=== PATIENT | male | born 1945 | race Caucasian/White ===

== ENCOUNTER → 2017-06-05 | Outpatient (CLI) | payer MEDICARE, BC | END | disposition home or self-care (01) | LOC: LABWHC1 10:29 | PROVIDERS: ATTEND Internal Medicine | DX: E23.0 Hypopituitarism (principal) | CPT/HCPCS: 36415; 82626 ==

== ENCOUNTER 2019-08-03 17:54 | Inpatient (IN) | payer BC, MEDICARE ==
[2019-08-03] MEDS ORDERED: ASPIRIN 81 MG PO STA (18:32)
[2019-08-03] MEDS ORDERED: SODIUM CHLORIDE 0.9% 500 ML 500 ML IV STA (18:32)
--- NOTE | 2019-08-03 18:36 | ED ---
General Adult HPI - General Chief complaint: Neuro Symptoms/Deficit Stated complaint: Headache, slurred speach Time Seen by Provider: 08/03/19 18:10 Source: patient, family Mode of arrival: ambulatory Limitations: no limitations - History of Present Illness Initial comments: Dictation was produced using [employer] dictation software. please excuse any grammatical, word or spelling errors. Chief Complaint: 73-year-old male presents with episodes of dysarthria History of Present Illness: 73-year-old male since yesterday's been having multiple episodes of dysarthria. Patient states his first episode was yesterday. States it lasted for several seconds. Patient states he feels like he had a hard time speaking transiently. He had another episode approximately 1 hour prior to arrival. He states that episode lasted for several seconds and resolved. Patient states he has no history of strokes. He is most stroke risk factors including diabetes, dyslipidemia hypertension. Patient states that over this last several weeks he's been dealing with headaches. He's been evaluated by multiple neurologists in the past. They feel like his headaches were secondary to cervical radiculopathy versus tension headache. He has an appointment with a headache specialist Dr. Michael for however has not made that appointment yet. Patient is asymptomatic at this time. The ROS documented in this emergency department record has been reviewed and confirmed by me. Those systems with pertinent positive or negative responses have been documented in the HPI. All other systems are other negative and/or noncontributory. PHYSICAL EXAM: General Impression: Alert and oriented x3, not in acute distress HEENT: Normocephalic atraumatic, extra-ocular movements intact, pupils equal and reactive to light bilaterally, mucous membranes moist. Cardiovascular: Heart regular rate and rhythm, S1&S2 audible, no murmurs, rubs or gallops Chest: Lungs clear to auscultation bilaterally, no rhonchi, no wheeze, no rales Abdomen: Bowel sounds present, abdomen soft, non-tender, non-distended, no organomegaly Musculoskeletal: Pulses present and equal in all extremities, no peripheral edema Motor: no focal deficits noted Neurological: CN II-XII grossly intact, no focal motor or sensory deficits noted Skin: Intact with no visualized rashes Psych: Normal affect and mood ED course: 73-year-old male presents with clinical presentation concerning for transient ischemic attack. Once upon arrival are within acceptable limits. Patient's NIH is currently 0. Laboratory evaluation obtained. CT, coag panel, metabolic panel is unremarkable. Chest x-ray is nonacute. Computed tomography scan of the head and neck shows no acute processes. There is demonstration of degenerative subluxation of C6-C7 and C7-T1. She given aspirin. There is clinical concern for transient ischemic attack. Patient will be admitted to Dr. Bradley with neurology on consultation. EKG interpretation: Ventricular rate 91, sinus rhythm,. 184, Q's 84, QTC 418. Overall this EKG is unremarkable. - Related Data Home Medications Medication Instructions Recorded Confirmed Albuterol Sulfate [Proventil Hfa] 1 puff INHALATION RT-Q6H PRN 08/03/19 08/03/19 Aspirin EC [Ecotrin Low Dose] 81 mg PO DAILY 08/03/19 08/03/19 Betamethasone Dipropionate 1 applic TOPICAL BID PRN 08/03/19 08/03/19 [Diprolene AF 0.05% Cream] Budesonide/Formoterol Fumarate 2 puff INHALATION RT-BID 08/03/19 08/03/19 [Symbicort 160-4.5 Mcg Inhaler] EPINEPHrine (Auto Inject) [Epipen] 0.3 mg IM ONCE PRN 08/03/19 08/03/19 Fluocinolone Acetonide [Synalar] 1 applic TOPICAL DAILY PRN 08/03/19 08/03/19 Gabapentin [Neurontin] 100 mg PO TID PRN 08/03/19 08/03/19 Ipratropium-Albuterol Nebulize 3 ml INHALATION RT-QID PRN 08/03/19 08/03/19 [Duoneb 0.5 mg-3 mg/3 ml Soln] Olmesartan Medoxomil [Benicar] 40 mg PO DAILY 08/03/19 08/03/19 Rosuvastatin [Crestor] 10 mg PO DAILY 08/03/19 08/03/19 Sildenafil Citrate [Viagra] 25 mg PO ONCE PRN 08/03/19 08/03/19 Ubidecarenone [Co Q-10] 400 mg PO DAILY 08/03/19 08/03/19 metFORMIN HCL [Glucophage] 500 mg PO AC-SUPPER 08/03/19 08/03/19 Allergies Allergy/AdvReac Type Severity Reaction Status Date / Time testosterone AdvReac MIGRAINES Verified 08/03/19 18:56 [From Testred Cypionate 200] Review of Systems ROS Statement: Those systems with pertinent positive or pertinent negative responses have been documented in the HPI. ROS Other: All systems not noted in ROS Statement are negative. Past Medical History Past Medical History: COPD, Diabetes Mellitus, Hyperlipidemia, Hypertension Additional Past Medical History / Comment(s): headache History of Any Multi-Drug Resistant Organisms: None Reported Past Surgical History: Back Surgery, Orthopedic Surgery Additional Past Surgical History / Comment(s): lymph node, rectal fistula, sinus surgery, L knee, Rshoulder, R nee, B carpal tunnel, Hemmorhoidectomy Past Psychological History: No Psychological Hx Reported Smoking Status: Former smoker Past Alcohol Use History: Occasional Past Drug Use History: None Reported General Exam Limitations: no limitations Course Vital Signs 08/03/19 08/03/19 18:02 18:50 Temperature 97.9 F Pulse Rate 83 99 Respiratory 18 16 Rate Blood Pressure 168/94 143/95 O2 Sat by Pulse 96 96 Oximetry Medical Decision Making - Lab Data Result diagrams: 08/03/19 18:42 08/03/19 18:42 Lab Results 08/03/19 08/03/19 08/03/19 Range/Units 18:42 18:42 18:42 WBC 6.4 (3.8-10.6) k/uL RBC 4.77 (4.30-5.90) m/uL Hgb 13.9 (13.0-17.5) gm/dL Hct 41.4 (39.0-53.0) % MCV 86.9 (80.0-100.0) fL MCH 29.2 (25.0-35.0) pg MCHC 33.6 (31.0-37.0) g/dL RDW 12.2 (11.5-15.5) % Plt Count 205 (150-450) k/uL Neutrophils % 65 % Lymphocytes % 20 % Monocytes % 7 % Eosinophils % 4 % Basophils % 1 % Neutrophils # 4.2 (1.3-7.7) k/uL Lymphocytes # 1.3 (1.0-4.8) k/uL Monocytes # 0.5 (0-1.0) k/uL Eosinophils # 0.3 (0-0.7) k/uL Basophils # 0.1 (0-0.2) k/uL PT 10.1 (9.0-12.0) sec INR 0.9 (<1.2) APTT 27.6 (22.0-30.0) sec Sodium 137 (137-145) mmol/L Potassium 4.4 (3.5-5.1) mmol/L Chloride 103 (98-107) mmol/L Carbon Dioxide 23 (22-30) mmol/L Anion Gap 11 mmol/L BUN 23 H (9-20) mg/dL Creatinine 1.13 (0.66-1.25) mg/dL Est GFR (CKD-EPI)AfAm 74 (>60 ml/min/1.73 sqM) Est GFR (CKD-EPI)NonAf 64 (>60 ml/min/1.73 sqM) Glucose 157 H (74-99) mg/dL Calcium 9.8 (8.4-10.2) mg/dL Total Bilirubin 0.3 (0.2-1.3) mg/dL AST 30 (17-59) U/L ALT 32 (21-72) U/L Alkaline Phosphatase 75 (38-126) U/L Troponin I (0.000-0.034) ng/mL Total Protein 7.3 (6.3-8.2) g/dL Albumin 4.6 (3.5-5.0) g/dL 08/03/19 Range/Units 18:42 WBC (3.8-10.6) k/uL RBC (4.30-5.90) m/uL Hgb (13.0-17.5) gm/dL Hct (39.0-53.0) % MCV (80.0-100.0) fL MCH (25.0-35.0) pg MCHC (31.0-37.0) g/dL RDW (11.5-15.5) % Plt Count (150-450) k/uL Neutrophils % % Lymphocytes % % Monocytes % % Eosinophils % % Basophils % % Neutrophils # (1.3-7.7) k/uL Lymphocytes # (1.0-4.8) k/uL Monocytes # (0-1.0) k/uL Eosinophils # (0-0.7) k/uL Basophils # (0-0.2) k/uL PT (9.0-12.0) sec INR (<1.2) APTT (22.0-30.0) sec Sodium (137-145) mmol/L Potassium (3.5-5.1) mmol/L Chloride (98-107) mmol/L Carbon Dioxide (22-30) mmol/L Anion Gap mmol/L BUN (9-20) mg/dL Creatinine (0.66-1.25) mg/dL Est GFR (CKD-EPI)AfAm (>60 ml/min/1.73 sqM) Est GFR (CKD-EPI)NonAf (>60 ml/min/1.73 sqM) Glucose (74-99) mg/dL Calcium (8.4-10.2) mg/dL Total Bilirubin (0.2-1.3) mg/dL AST (17-59) U/L ALT (21-72) U/L Alkaline Phosphatase (38-126) U/L Troponin I <0.012 (0.000-0.034) ng/mL Total Protein (6.3-8.2) g/dL Albumin (3.5-5.0) g/dL Disposition Clinical Impression: TIA (transient ischemic attack) Disposition: ADMITTED IP TO THIS HOSP Condition: Fair Referrals: Roseline Bradley MD [Primary Care Provider] - 1-2 days Decision Time: 19:39
[2019-08-03 18:55] LABS: Basophils # (A) 0.1 k/uL (0-0.2); Basophils % (A) 1 %; Eosinophils # (A) 0.3 k/uL (0-0.7); Eosinophils % (A) 4 %; HCT 41.4 % (39.0-53.0); HGB 13.9 gm/dL (13.0-17.5); Lymphocytes # (A) 1.3 k/uL (1.0-4.8); Lymphocytes % (A) 20 %; MCH 29.2 pg (25.0-35.0); MCHC 33.6 g/dL (31.0-37.0); MCV 86.9 fL (80.0-100.0); Mean Platelet Volume 7.1; Monocytes # (A) 0.5 k/uL (0-1.0); Monocytes % (A) 7 %; Neutrophils # (A) 4.2 k/uL (1.3-7.7); Neutrophils % (A) 65 %; Platelet Count 205 k/uL (150-450); RBC 4.77 m/uL (4.30-5.90); RDW 12.2 % (11.5-15.5); WBC 6.4 k/uL (3.8-10.6)
[2019-08-03 19:05] LABS: Albumin 4.6 g/dL (3.5-5.0); Calcium 9.8 mg/dL (8.4-10.2); Potassium 4.4 mmol/L (3.5-5.1); Total Bilirubin 0.3 mg/dL (0.2-1.3); Total Protein 7.3 g/dL (6.3-8.2)
[2019-08-03 19:13] LABS: INR 0.9 (<1.2); Partial Thromboplastin Time 27.6 sec (22.0-30.0); Prothrombin Time 10.1 sec (9.0-12.0)
--- NOTE | 2019-08-03 19:20 | XR ---
EXAMINATION TYPE: XR chest 2V DATE OF EXAM: 08/03/2019 COMPARISON: 08/07/2010 HISTORY: Headache chest pain TECHNIQUE: Frontal and lateral views of the chest are obtained. FINDINGS: Heart and mediastinum are normal. Lungs are clear. Diaphragm is normal. There are chest le ads. Bony thorax is intact. IMPRESSION: Normal chest. No change.
--- NOTE | 2019-08-03 19:29 | CT ---
EXAMINATION TYPE: CT brain neelima mckeon DATE OF EXAM: 08/03/2019 COMPARISON: Head CT scan December 11, 2009 HISTORY: Headache Neck pain CT DLP: 1512.8 mGycm Automated exposure control for dose reduction was used. TECHNIQUE: CT scan of the head and cervical spine are performed without contrast. FINDINGS: Ventricles have normal size. There is no mass effect nor midline shift. There is no sign of intracranial hemorrhage. The calvarium is intact. I see no bony destructive process. Skull base is intact. Cervical vertebra have fairly normal alignment. There is minimal degenerative 4 mm subluxation at C6- 7 and C7-T1. The facet joints are intact. There is multilevel hypertrophic facet arthropathy. The sku ll base is intact. There is no evidence of cervical spine fracture. IMPRESSION: No cervical spine fracture. Mild degenerative subluxation at C6-7 and C7-T1. Negative CT scan of the brain. No adverse change compared to old exam.
[2019-08-03 21:26] LABS: Glucose,Whole Blood 137 mg/dL (75-99)
[2019-08-03] MEDS ORDERED: IPRATROPIUM-ALBUTEROL 3 ML NEB INHALATION PRN (21:40)
[2019-08-03] MEDS ORDERED: ALBUTEROL NEBULIZED 2.5 MG/3 ML INHALATION PRN (21:40)
[2019-08-03] MEDS ORDERED: FLUOCINOLONE ACETONIDE TOPICAL PRN (21:40)
[2019-08-03] MEDS ORDERED: BETAMETHASONE DIPROPIONATE 0.05% CREAM 15 GM TUBE TOPICAL PRN (21:40)
[2019-08-03] MEDS ORDERED: GABAPENTIN 100 MG CAP PO PRN (21:40)
[2019-08-03] MEDS ORDERED: NON FORMULARY DRUG (Epinephrine (Auto Inject) 0.3 MG) IM PRN (21:40)
[2019-08-03] MEDS ORDERED: MELATONIN 3 MG TABLET PO PRN (21:44)
[2019-08-03] MEDS ORDERED: ACETAMINOPHEN TAB 325 MG TAB PO PRN (21:45)
[2019-08-03] MEDS: metFORMIN 500 MG TAB PO SCH (21:59)
[2019-08-04 04:16] LABS: Cholesterol 161 mg/dL (<200); HDL Cholesterol 47 mg/dL (40-60); LDL Cholesterol,Calculated 78 mg/dL (0-99); Triglycerides 179 mg/dL (<150)
[2019-08-04 06:20] LABS: Glucose,Whole Blood 112 mg/dL (75-99)
[2019-08-04] MEDS: INSULIN ASPART (NovoLOG) 100 UNIT/ML VIAL SQ SCH ×4 (06:22→20:30)
[2019-08-04] MEDS: SYMBICORT 160-4.5 MCG INHALER INHALATION SCH ×2 (07:27→19:29)
[2019-08-04] MEDS: ATORVASTATIN 20 MG TAB PO SCH (08:48)
[2019-08-04] MEDS: LOSARTAN 50 MG TAB PO SCH (08:48)
[2019-08-04] MEDS ORDERED: ASPIRIN 81 MG PO SCH (09:00)
[2019-08-04] MEDS ORDERED: NON FORMULARY DRUG (Ubidecarenone [Co Q-10] 400 MG) PO SCH (09:00)
[2019-08-04 11:49] LABS: Glucose,Whole Blood 103 mg/dL (75-99)
[2019-08-04] MEDS: CLOPIDOGREL 75 MG TAB PO SCH (11:49)
--- NOTE | 2019-08-04 12:04 | P.CNNES ---
History of Present Illness Consult date: 08/04/19 Reason for Consult: Recurrent TIA History of Present Illness: Patient is a 73-year-old male with history of hypertension, borderline diabetes, X tobacco use, hyperlipidemia, who states that in first week of May, he started having headaches pointing to the left occipital region, extending to the left temporal region. He was seen by his primary physician who felt it was coming from the neck because of arthritis. He was given gabapentin, and the headaches resolved in 2 weeks. The same headache came back in early June 2019, and was referred to Dr. Davis neurologist. He was also sent to a neurosurgeon for a possible nerve block. The neurosurgeon wanted patient to see the neurologist first and he has an appointment with Dr. Davis on 08/23/2019. The headache again lasted for a couple weeks and then resolved. Patient states the headaches reappeared Thursday night on 07/30/2019 and has been present since then. Patient states that on 08/02/2019, he had an episode of slurred speech by Dr. butelr to the table filler that lasted for 10 seconds and then resolved. Her morning he he was remodeling his house, and the slurred speech again occurred lasted for 3 seconds. He got concerned and came to the ER. Patient underwent computed tomography scan of the brain, which revealed no acute process. CT of the cervical spine showed mild degenerative subluxation of see 67 and C7-T1. Chest x-ray was normal, EKG showed normal sinus rhythm with marked sinus arrhythmia. Patient had 3-4 more episodes of transient slurred speech that lasted for 10-15 seconds each time since he has been to the hospital. In fact it happened while I was talking to him taking history and it happened for about 15-20 seconds and then went away. He has no other focal symptoms, facial droop, double vision, drooling, numbness tingling of the extremities or weakness. Patient states he had undergone stress test and a carotid Doppler checked on 02/18/2019 at [facility]. He was told the carotids have no significant blockage. Patient has history of hypertension for years. He has borderline diabetes for the last few months. He was just started on metformin in June 2019 after he is A1c was 6.8. Patient has smoked for 10 years, quit in 1981. For the first 7 years of smoking, he smoked 1-1/2 to 2 packs per day and for the last 3 years of smoking he smoked 3 packs per day. He quit tobacco use in 1981. Denies any alcohol. Patient does take aspirin 81 mg daily for a long time. Patient denies any history of headaches prior to May 2019 as above. Review of Systems As above in detail. Otherwise all 14 point review systems negative. 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 Past Medical History Past Medical History: COPD, Diabetes Mellitus, Hyperlipidemia, Hypertension Additional Past Medical History / Comment(s): headache History of Any Multi-Drug Resistant Organisms: None Reported Past Surgical History: Back Surgery, Orthopedic Surgery Additional Past Surgical History / Comment(s): lymph node, rectal fistula, sinus surgery, L knee, Rshoulder, R knee, B carpal tunnel, Hemmorhoidectomy Past Psychological History: No Psychological Hx Reported Smoking Status: Former smoker Past Alcohol Use History: Occasional Past Drug Use History: None Reported Medications and Allergies Home Medications Medication Instructions Recorded Confirmed Type Albuterol Sulfate [Proventil Hfa] 1 puff INHALATION RT-Q6H PRN 08/03/19 08/03/19 History Aspirin EC [Ecotrin Low Dose] 81 mg PO DAILY 08/03/19 08/03/19 History Betamethasone Dipropionate 1 applic TOPICAL BID PRN 08/03/19 08/03/19 History [Diprolene AF 0.05% Cream] Budesonide/Formoterol Fumarate 2 puff INHALATION RT-BID 08/03/19 08/03/19 History [Symbicort 160-4.5 Mcg Inhaler] EPINEPHrine (Auto Inject) [Epipen] 0.3 mg IM ONCE PRN 08/03/19 08/03/19 History Fluocinolone Acetonide [Synalar] 1 applic TOPICAL DAILY PRN 08/03/19 08/03/19 History Gabapentin [Neurontin] 100 mg PO TID PRN 08/03/19 08/03/19 History Ipratropium-Albuterol Nebulize 3 ml INHALATION RT-QID PRN 08/03/19 08/03/19 History [Duoneb 0.5 mg-3 mg/3 ml Soln] Olmesartan Medoxomil [Benicar] 40 mg PO DAILY 08/03/19 08/03/19 History Rosuvastatin [Crestor] 10 mg PO DAILY 08/03/19 08/03/19 History Sildenafil Citrate [Viagra] 25 mg PO ONCE PRN 08/03/19 08/03/19 History Ubidecarenone [Co Q-10] 400 mg PO DAILY 08/03/19 08/03/19 History metFORMIN HCL [Glucophage] 500 mg PO AC-SUPPER 08/03/19 08/03/19 History Allergies Allergy/AdvReac Type Severity Reaction Status Date / Time testosterone AdvReac MIGRAINES Verified 08/03/19 18:56 [From Testred Cypionate 200] Physical Examination - Vital Signs Vital Signs: Vital Signs Temp Pulse Pulse Resp BP BP Pulse Ox 08/04/19 11:16 75 16 175/95 97 08/04/19 07:54 97.4 F L 81 16 143/80 08/04/19 04:00 97.0 F L 85 18 126/71 98 08/04/19 00:00 97.4 F L 78 18 172/81 96 08/03/19 20:29 98.6 F 08/03/19 20:19 98.0 F 78 18 177/84 94 L 08/03/19 20:07 90 18 135/72 95 08/03/19 18:50 99 16 143/95 96 08/03/19 18:02 97.9 F 83 18 168/94 96 Intake and Output 08/03/19 08/04/19 08/04/19 22:59 06:59 14:59 Intake Total 240 240 Balance 240 240 Intake: Oral 240 240 Other: Voiding Method Toilet Toilet # Voids 2 Weight 96.4 kg On examination patient is an elderly male, very pleasant in no acute distress. Patient is alert awake oriented to time place and person. Speech- language functions recent and remote memory normal. Attention and concentration fund of knowledge is adequate. On cranial nerve examination pupils are small, about 2-3 mm, and then may minimally reacting. Extraocular muscles intact. Face is symmetric and tongue protrudes the midline. Palatal elevation and sensation normal. On muscle strength testing there is no drift and the strength is normal in arms and legs distally and proximally reflexes are 1+ and plantars downgoing sensory touch is equal. No ataxia for [id number] testing. Tone and bulk of muscles normal. Gait normal. No obvious bruit or murmur and peripheral pulses are present. Patient had an episode of transient slurred speech while he was providing history for me. The episode lasted for about 15-20 seconds and then resolved. There was no other associated focal neurological symptoms with it. Results Patient's cholesterol is 161, LDL 78, HDL 47 on 08/03/2019. - Laboratory Findings CBC and BMP: 08/03/19 18:42 08/03/19 18:42 Abnormal Lab Findings: Abnormal Labs 08/03/19 08/03/19 08/03/19 18:42 18:42 21:23 BUN 23 H Glucose 157 H POC Glucose (mg/dL) 137 H Triglycerides 179 H 08/04/19 06:19 BUN Glucose POC Glucose (mg/dL) 112 H Triglycerides Assessment and Plan Assessment: * Recurrent episodes of slurred speech lasting for 10-15 seconds, without any other focal neurological symptoms. Symptoms are suggestive of possible TIA, due to ischemia in some lacunar vascular distribution of small blood vessels in the brain. * New onset headaches, unclear etiology. Rule out large vessel stenosis/occlusion. * Hypertension * Borderline diabetes * Hyperlipidemia * X tobacco use. Plan: * Patient is experiencing recurrent brief episodes of slurred speech, possible TIA. His current neurological examination is normal. * Patient will be started on Plavix 75 mg daily for stroke prevention. * We will check CTA of head and neck to rule out large vessel stenosis/dissection. * Continue Crestor for dyslipidemia. * Await hemoglobin A1c. We will check ESR, CRP. * We will also check acetylcholine receptor antibodies to rule out possibility of myasthenia gravis, although appears less likely with lack of any ocular symptoms. * We will follow. * Thank you very much for allowing me to participate in care of your patient.
--- NOTE | 2019-08-04 13:50 | P.HPIM ---
History of Present Illness H&P Date: 08/04/19 Chief Complaint: Slurred speech. This is a 73-year-old male one of my patient with a previous medical history significant for hypertension and hypertensive cardiovascular disease with left ventricular hypertrophy, hyperlipidemia, diabetes mellitus type 2, osteoarthritis, COPD, remote history of tobacco use and dependence, hypogonadism was on androgen replacement therapy that he stopped, patient started to have significant neck pain started at the beginning of May and he has been seeing me on and off for that matter underwent an array of testing including carotid artery ultrasound echo care gram the stress testing that was negative for stress-induced ischemia also underwent MRI of the cervical spine that showed spondylosis of the lumbar spine was supposed to be seen by neurology for evaluation of possible occipital neuralgia and the patient had stopped his androgen replacement therapy due to increased risk of hyperlipidemia and risk of stroke patient came to the emergency department yesterday because of recurrent slurred speech that happened suddenly he stated that he was talking to his and he had a first episode on Thursday lasted for several seconds incontinence own and every time it happens he'll have an increase in his blood pressure r eading at home yesterday he had another episode in the afternoon he tried to call my office, see me however he decided to go to the ER for evaluation ended up going for computed tomography scan of the brain that was negative for acute infarct or bleed however because of the presentation was kept in the hospital with neurology evaluation patient was seen and evaluated by Dr. Guerra who recommended for the patient to go for CT angiography of the neck and the cerebral arteries for further evaluation and recommendation he was placed on antiplatelet therapy. Review of Systems Constitutional: Reports chronic headaches, Denies anorexia, Denies lethargy, Denies malaise, Denies weakness, Denies weight gain, Denies weight loss Eyes: denies blurred vision, denies bulging eye, denies decreased vision Ears: deny: decreased hearing Ears, nose, mouth and throat: Denies dysphagia, Denies neck lump, Denies sore throat, Denies vertigo Cardiovascular: Denies chest pain, Denies decreased exercise tolerance, Denies dyspnea on exertion, Denies lightheadedness, Denies rapid heart beat, Denies shortness of breath, Denies syncope Respiratory: Denies congestion, Denies cough, Denies cough with sputum, Denies home oxygen, Denies sleep apnea, Denies snoring, Denies wheezing Gastrointestinal: Denies abdominal pain, Denies bloating, Denies BRBPR, Denies heartburn, Denies loss of appetite, Denies melena, Denies nausea, Denies vomiting Genitourinary: Reports decreased libido, Denies dysuria, Denies kidney stones, Denies nocturia, Denies polyuria Musculoskeletal: Denies myalgias Musculoskeletal: absent: ankle pain, ankle stiffness, ankle swelling, elbow pain, elbow stiffness, elbow swelling, foot pain, foot stiffness, foot swelling, hand pain, hand stiffness, hand swelling, hip pain, hip stiffness, hip swelling, knee pain, knee stiffness, knee swelling, shoulder pain, shoulder stiffness, shoulder swelling, wrist pain, wrist stiffness, wrist swelling Integumentary: Denies pruritus, Denies rash Neurological: Denies gait dysfunction, Denies head injury, Denies lack of coordination, Denies loss of vision, Denies memory loss, Denies migraines, Denies motor disturbance, Denies numbness, Denies paralysis, Denies paresthesias, Denies weakness Psychiatric: Denies anxiety, Denies depression Endocrine: Denies fatigue, Denies weight change Past Medical History Past Medical History: COPD, Diabetes Mellitus, Hyperlipidemia, Hypertension, Prostate Disorder Additional Past Medical History / Comment(s): headache History of Any Multi-Drug Resistant Organisms: None Reported Past Surgical History: Back Surgery, Orthopedic Surgery Additional Past Surgical History / Comment(s): lymph node, rectal fistula, sinus surgery, L knee, Rshoulder, R knee, B carpal tunnel, Hemmorhoidectomy Past Psychological History: No Psychological Hx Reported Smoking Status: Former smoker (Patient used to smoke about 3 pack every day for about 50 years he quit in 1981.) Past Alcohol Use History: Occasional Past Drug Use History: None Reported - Past Family History Mother Family Medical History: No Reported History (Mother at age of 50 from unknown cause) Father Family Medical History: No Reported History (Father at age of 85 from unknown cause.) Brother(s) Family Medical History: No Reported History (Patient has one brother no major medical problems.) Sister(s) Family Medical History: Diabetes Mellitus, Thyroid Disorder (Patient had one sister who from more of a vehicle accident and had history of diabetes hypothyroidism and obesity.) Daughter(s) Family Medical History: Diabetes Mellitus, Hypertension (Patient has one daughter with diabetes hypertension and also arthritis per) Son(s) Family Medical History: No Reported History (Patient has one son no major medical problems.) Medications and Allergies Home Medications Medication Instructions Recorded Confirmed Type Albuterol Sulfate [Proventil Hfa] 1 puff INHALATION RT-Q6H PRN 08/03/19 08/03/19 History Aspirin EC [Ecotrin Low Dose] 81 mg PO DAILY 08/03/19 08/03/19 History Betamethasone Dipropionate 1 applic TOPICAL BID PRN 08/03/19 08/03/19 History [Diprolene AF 0.05% Cream] Budesonide/Formoterol Fumarate 2 puff INHALATION RT-BID 08/03/19 08/03/19 History [Symbicort 160-4.5 Mcg Inhaler] EPINEPHrine (Auto Inject) [Epipen] 0.3 mg IM ONCE PRN 08/03/19 08/03/19 History Fluocinolone Acetonide [Synalar] 1 applic TOPICAL DAILY PRN 08/03/19 08/03/19 History Gabapentin [Neurontin] 100 mg PO TID PRN 08/03/19 08/03/19 History Ipratropium-Albuterol Nebulize 3 ml INHALATION RT-QID PRN 08/03/19 08/03/19 History [Duoneb 0.5 mg-3 mg/3 ml Soln] Olmesartan Medoxomil [Benicar] 40 mg PO DAILY 08/03/19 08/03/19 History Rosuvastatin [Crestor] 10 mg PO DAILY 08/03/19 08/03/19 History Sildenafil Citrate [Viagra] 25 mg PO ONCE PRN 08/03/19 08/03/19 History Ubidecarenone [Co Q-10] 400 mg PO DAILY 08/03/19 08/03/19 History metFORMIN HCL [Glucophage] 500 mg PO AC-SUPPER 08/03/19 08/03/19 History Allergies Allergy/AdvReac Type Severity Reaction Status Date / Time testosterone AdvReac MIGRAINES Verified 08/03/19 18:56 [From Testred Cypionate 200] Physical Exam Vitals: Vital Signs Temp Pulse Pulse Resp BP BP Pulse Ox 08/04/19 11:16 75 16 175/95 97 08/04/19 11:00 97.2 F L 75 17 157/88 96 08/04/19 07:54 97.4 F L 81 16 143/80 08/04/19 04:00 97.0 F L 85 18 126/71 98 08/04/19 00:00 97.4 F L 78 18 172/81 96 08/03/19 20:29 98.6 F 08/03/19 20:19 98.0 F 78 18 177/84 94 L 08/03/19 20:07 90 18 135/72 95 08/03/19 18:50 99 16 143/95 96 08/03/19 18:02 97.9 F 83 18 168/94 96 Intake and Output 08/03/19 08/04/19 08/04/19 22:59 06:59 14:59 Intake Total 240 472 Balance 240 472 Intake: IV 10 0.9 10 Oral 240 462 Other: Voiding Method Toilet Toilet # Voids 2 Weight 96.4 kg HEENT: Head is atraumatic, normocephalic, pupils were equal round reactive to light and accommodations, extraocular muscle movement were intact. Mucous membranes of the mouth was dry. Neck: Supple, no JVP, no carotid bruit, no lymphadenopathy. Chest: Decreased breath sounds at the bases, few rhonchi, no expiratory wheezes, no chest with tenderness, no intercostal retractions per he Heart: First heart sound is depressed, second heart sounds normal, there is systolic ejection murmur 2/6 located in the left sternal border. Abdomen: Soft, nontender, nondistended, positive bowel sounds, no he patosplenomegaly Extremities: No edema, no calf tenderness, dorsalis pedis +2 bilaterally. Neurologic examination: Patient is awake alert and oriented 3, cranial nerves II-12 appear grossly intact, muscle power 5 out of 5 in upper and lower extremities bilaterally deep tendon reflexes were normal, no clonus, no pronator drift. Results CBC & Chem 7: 08/03/19 18:42 08/03/19 18:42 Labs: Abnormal Lab Results - Last 24 Hours (Table) 08/03/19 08/03/19 08/03/19 Range/Units 18:42 18:42 21:23 BUN 23 H (9-20) mg/dL Glucose 157 H (74-99) mg/dL POC Glucose (mg/dL) 137 H (75-99) mg/dL Triglycerides 179 H (<150) mg/dL 08/04/19 08/04/19 Range/Units 06:19 11:46 BUN (9-20) mg/dL Glucose (74-99) mg/dL POC Glucose (mg/dL) 112 H 103 H (75-99) mg/dL Triglycerides (<150) mg/dL Thrombosis Risk Factor Assmnt - DVT/VTE Prophylaxis DVT/VTE Prophylaxis: Pharmacologic Prophylaxis ordered, Mechanical Prophylaxis ordered - Choose All That Apply Any of the Below Risk Factors Present?: No Other Risk Factors: Yes Each Risk Factor Represents 2 Points: Age 61-74 years Other congenital or acquired thrombophilia - If yes, enter type in comment: No Thrombosis Risk Factor Assessment Total Risk Factor Score: 2 Thrombosis Risk Factor Assessment Level: Low Risk Assessment and Plan Assessment: Assessment and plan: 1. Acute transient ischemic attack likely related to lacunar infarct in view of his hypertension diabetes and hyperlipidemia. Patient did have a computed tomography scan of the brain that was totally negative, neuro check every 2 hours for the next 24 hours, monitor the patient very closely, patient did have an echo cardiac gram an ultrasound of the carotid in February of this year that were negative, patient is going for CTA of the neck and the cerebral arteries, may need to go for MRI of the brain with and without gadolinium. Continue Plavix 75 mg orally once every day, continue Crestor 10 mg orally once every day for secondary stroke prevention. 2. Hypertension and hypertensive cardiovascular disease with left ventricular hypertrophy. Continue Olmesartan 40 mg orally once every day, may add small dose of hydrochlorothiazide 12.5 mg orally once every day. 3. Hyperlipidemia. Continue patient on low-cholesterol diet, continue with Crestor 20 mg orally once every day. 4. History of COPD. Continue patient on Symbicort 160/4.5 g 2 puffs inhalation twice every day. 5. Degenerative disc disease of the cervical spine with subluxation of C6 and 7. Had an MRI of the cervical spine not too long ago and appears to be stable. 6. History of hypogonadism. However the patient was taken off his testosterone due to side effects. 7. Impotence. Patient is using sildenafil as needed . 8. Occipital headache. Continue with gabapentin 100 mg orally 3 times every day. 9. DVT prophylaxis. Continue patient on heparin 5000 units subcutaneously every 12 hours. 10. GI prophylaxis. Continue Protonix 40 mg orally once every day. 11. Admitted to inpatient. Estimate a length of stay 2 midnights. 12. Patient is full code.
--- NOTE | 2019-08-04 14:29 | CT ---
EXAMINATION TYPE: CT angio head neck DATE OF EXAM: 08/04/2019 HISTORY: TIA COMPARISON: None CT DLP: 546.3 mGycm. Automated Exposure Control for Dose Reduction was Utilized. TECHNIQUE: CTA scan of the neck is performed with IV Contrast, patient injected with 65 mL of Isovue 370, axial images are obtained, coronal and sagittal reformatted images are reviewed. Three-D recons tructed images are created on an independent workstation and reviewed. Source images are reviewed. FINDINGS: Carotid/Vascular Structures: Internal carotid arteries are patent to the skull base. No suspicious st enosis of the carotid bifurcations is evident. 2-D reconstructive images and 3-D rotating images appe ar without significant stenosis. Some plaquing is present at the right internal carotid artery origin without stenosis or vertebral arteries are codominant. Cervical of [place]: Vertebral basilar system appears normal. Posterior cerebral vasculature is unrema rkable. Internal carotid arteries bifurcate normally into A1 and M1 segments. A2 segments are normal. The anterior communicating artery is patent. Left Posterior communicating artery is patent. Right po sterior communicating artery is patent. IMPRESSION: 1. No flow-limiting stenosis bilateral carotid bifurcations. Atheromatous plaquing is noted on the ri ght. 2. Normal [place]
[2019-08-04] MEDS: HEPARIN SODIUM,PORCINE 5,000 UNIT/ML 1 ML VIAL SQ SCH ×2 (16:03→23:24)
[2019-08-04 16:26] LABS: Glucose,Whole Blood 100 mg/dL (75-99)
[2019-08-04 16:29] LABS: Hemoglobin A1C 6.6 % (4.0-6.0)
[2019-08-04] MEDS: metFORMIN 500 MG TAB PO SCH (16:55)
[2019-08-04] MEDS ORDERED: HYDROcodone/APAP 5-325MG 1 EACH TAB PO STA (18:10)
[2019-08-04 20:28] LABS: Glucose,Whole Blood 94 mg/dL (75-99)
[2019-08-04 20:31] LABS: Glucose,Whole Blood 100 mg/dL (75-99)
[2019-08-04] MEDS ORDERED: HYDROcodone/APAP 5-325MG 1 EACH TAB PO ONE (21:00)
[2019-08-05 05:58] LABS: Glucose,Whole Blood 109 mg/dL (75-99)
[2019-08-05] MEDS: INSULIN ASPART (NovoLOG) 100 UNIT/ML VIAL SQ SCH ×4 (05:58→20:35)
[2019-08-05 06:20] LABS: Basophils % (A) 0 %; Eosinophils # (A) 0.3 k/uL (0-0.7); Eosinophils % (A) 7 %; HCT 41.5 % (39.0-53.0); HGB 14.3 gm/dL (13.0-17.5); Lymphocytes # (A) 1.2 k/uL (1.0-4.8); Lymphocytes % (A) 25 %; MCHC 34.5 g/dL (31.0-37.0); MCV 87.1 fL (80.0-100.0); Mean Platelet Volume 6.3; Monocytes # (A) 0.4 k/uL (0-1.0); Monocytes % (A) 8 %; Neutrophils # (A) 2.7 k/uL (1.3-7.7); Neutrophils % (A) 57 %; Platelet Count 208 k/uL (150-450); RBC 4.76 m/uL (4.30-5.90); RDW 12.3 % (11.5-15.5); WBC 4.7 k/uL (3.8-10.6)
[2019-08-05 06:33] LABS: Albumin 4.3 g/dL (3.5-5.0); Calcium 9.8 mg/dL (8.4-10.2); Potassium 4.5 mmol/L (3.5-5.1); Total Bilirubin 0.5 mg/dL (0.2-1.3)
[2019-08-05] MEDS: LOSARTAN 50 MG TAB PO SCH (07:55)
[2019-08-05] MEDS: CLOPIDOGREL 75 MG TAB PO SCH (07:55)
[2019-08-05] MEDS: HEPARIN SODIUM,PORCINE 5,000 UNIT/ML 1 ML VIAL SQ SCH ×3 (07:55→22:52)
[2019-08-05] MEDS: ATORVASTATIN 20 MG TAB PO SCH (07:55)
[2019-08-05] MEDS: SYMBICORT 160-4.5 MCG INHALER INHALATION SCH ×2 (11:25→20:12)
[2019-08-05 11:42] LABS: Glucose,Whole Blood 110 mg/dL (75-99)
[2019-08-05] MEDS: ASPIRIN 81 MG PO SCH (11:55)
[2019-08-05] MEDS: HYDROCHLOROTHIAZIDE 25 MG TAB PO SCH (11:55)
--- NOTE | 2019-08-05 12:42 | MR ---
EXAMINATION TYPE: MR brain wo/w con DATE OF EXAM: 08/05/2019 COMPARISON: CT brain 08/03/2019 HISTORY: TIA/Slurred Speech TECHNIQUE: Multiplanar, multisequence images of the brain and brainstem is performed without and with IV contras t, utilizing 9 mL intravenous Gadavist . FINDINGS: Diffusion weighted images demonstrate no evidence of a recent infarct or other diffusion ab normality. There are foci of increased signal on inversion recovery and T2-weighted sequences within the subcortical, juxtacortical, periventricular white matter, approximately 5-10 lesions. There is no extra-axial fluid collection. The ventricular system and cisternal spaces are normal in size and ap pearance. The brain volume is age appropriate. Midline structures demonstrate normal morphology. The craniocervical junction appears within normal limits. Post contrast images demonstrate no abnormal enhancement. The dural venous sinuses appear pa tent. The visualized sinuses are remarkable for mucosal disease within the maxillary sinuses, ethmoid air cells and frontal sinus, and the globes are intact. IMPRESSION: Nonspecific white matter demyelination, findings may be due to chronic small vessel ische mandeep disease. Mild sinus disease.
--- NOTE | 2019-08-05 13:58 | EEG ---
ELECTROENCEPHALOGRAM REPORT DATE OF SERVICE: 08/05/2019 PREAMBLE: This is a 73-year-old male who has been having episodes of slurred speech, lasting for 10 to 15 seconds and then going away. This study is performed to evaluate for any epileptiform activity. EEG FINDINGS: A routine 21 channel awake digital EEG recording was accomplished utilizing the 10/20 international system with bipolar and referential montages. The background consists of well developed, well regulated, moderate amplitude activity in 9 to 10 hertz alpha. Background is posterior dominant and reactive to eye opening and closing. There is intermittent left temporal sharp waves seen during the study. Mild drowsiness was seen but deeper stages of sleep were not seen. Photic driving response was not seen. EKG rhythm lead revealed no arrhythmia. IMPRESSION: This is an abnormal EEG due to intermittent left temporal sharp waves. This is suggestive of focal cortical neuronal dysfunction, with cortical irritability and tendency for seizures. Clinical correlation is strongly recommended. MMANA MARIA / REJI: [id number] / [email or web address]
[2019-08-05] MEDS: OXcarbazepine 150 MG TAB PO SCH ×2 (14:05→20:39)
--- NOTE | 2019-08-05 14:40 | P.PN ---
Subjective Progress Note Date: 08/05/19 Patient had 8 stereotypical spells yesterday, and 3 today. Each of these associated with slurred speech lasting for several seconds. No associated loss of consciousness or loss of awareness. No other focal neurological symptoms. Patient's ESR is 6, hemoglobin A1c 6.6. CRP is <0.50, cholesterol 161, LDL 78, HDL 47. EKG showed sinus rhythm with marked sinus arrhythmia. Patient had a CTA of head and neck, which revealed no flow limiting stenosis involving bilateral carotids. Atheromatous plaquing is noted on the right. Normal [place]. MRI of the brain with and without contrast, which was nonspecific white matter demyelination, findings may be due to chronic small vessel ischemic disease. Mild sinus disease. Patient had an EEG, which revealed abnormal EEG due to intermittent left temporal sharp waves. This is suggestive of focal cortical neuronal dysfunction, with cortical irritability and tendency for seizures. Clinical correlation is strongly recommended. Objective - Vital Signs Vital signs: Vital Signs Temp 97.5 F L 08/05/19 12:00 Pulse 76 08/05/19 12:00 Resp 16 08/05/19 12:00 BP 132/81 08/05/19 12:00 Pulse Ox 97 08/05/19 12:00 Intake & Output 08/04/19 08/05/19 08/05/19 18:59 06:59 18:59 Intake Total 694 30 510 Output Total 3 Balance 694 27 510 Weight 94.3 kg Intake: IV 10 30 30 0.9 10 10 Invasive Line 1 30 20 Oral 684 480 Output: Urine 3 Other: Voiding Method Toilet Toilet Toilet # Voids 450 - Exam Patient's mental status, speech and language functions are normal. Cranial nerves are normal. Muscle strength normal. No ataxia. Tone and bulk of muscles normal. - Labs CBC & Chem 7: 08/05/19 05:55 08/05/19 05:55 Labs: Abnormal Lab Results - Last 24 Hours (Table) 08/03/19 08/04/19 08/04/19 Range/Units 18:42 16:24 20:24 Sodium (137-145) mmol/L BUN (9-20) mg/dL Glucose (74-99) mg/dL POC Glucose (mg/dL) 100 H 100 H (75-99) mg/dL Hemoglobin A1c 6.6 H (4.0-6.0) % 08/05/19 08/05/19 08/05/19 Range/Units 05:55 05:56 11:39 Sodium 133 L (137-145) mmol/L BUN 22 H (9-20) mg/dL Glucose 109 H (74-99) mg/dL POC Glucose (mg/dL) 109 H 110 H (75-99) mg/dL Hemoglobin A1c (4.0-6.0) % Assessment and Plan Assessment: * Recurrent episodes of slurred speech lasting for 10-15 seconds, without any other focal neurological symptoms. TIA is unlikely, with lack of response from Plavix, and normal MRI of the brain. EEG was abnormal with evidence of intermittent left temporal sharp waves. Patient possibly having simple partial seizures. Patient denies any history of concussions, or traumatic brain injury in the past. MRI of the brain was normal. Exact cause is uncertain. * New onset headaches, unclear etiology. No evidence of large vessel stenosis/occlusion. No evidence of temporal arteritis. * Hypertension * Borderline diabetes * Hyperlipidemia * X tobacco use. Plan: * Patient is experiencing recurrent brief episodes of slurred speech. TIA workup is negative. EEG was abnormal suggestive of possible simple partial seizures. We will empirically start patient on Trileptal 150 mg twice a day. Hopefully Trileptal will also help with neuralgic pain involving the left occipital region. Patient will be started on Trileptal 150 mg twice a day. If needed, the dose could be increased to 300 mg twice a day. Patient was informed to stop medication if he gets any rash. He needs to follow-up with a neurologist locally to follow-up on the dose of Trileptal. Patient has an appointment with Dr. Davis on 07/23/2019. * Continue aspirin and Plavix for now. * Await acetylcholine receptor antibodies to rule out possibility of myasthenia gravis, although appears less likely with lack of any ocular symptoms. * If patient stays stable overnight, then may discharge in the morning. * Patient was recommended to hold off on driving, until cleared by his neurologist Dr. Davis.
--- NOTE | 2019-08-05 15:06 | P.PN ---
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, hyperlipidemia, diabetes mellitus type 2, osteoarthritis, COPD, remote history of tobacco use and dependence, hypogonadism was on androgen replacement therapy that he stopped, patient started to have significant neck pain started at the beginning of May and he has been seeing me on and off for that matter underwent an array of testing including carotid artery ultrasound echo care gram the stress testing that was negative for stress-induced ischemia also underwent MRI of the cervical spine that showed spondylosis of the lumbar spine was supposed to be seen by neurology for evaluation of possible occipital neuralgia and the patient had stopped his androgen replacement therapy due to increased risk of hyperlipidemia and risk of stroke patient came to the emergency department yesterday because of recurrent slurred speech that happened suddenly he stated that he was talking to his and he had a first episode on Thursday lasted for several seconds incontinence own and every time it happens he'll have an increase in his blood pressure reading at home yesterday he had another episode in the afternoon he tried to call my office, see me however he decided to go to the ER for evaluation ended up going for computed tomography scan of the brain that was negative for acute infarct or bleed however because of the presentation was kept in the hospital with neurology evaluation patient was seen and evaluated by Dr. Guerra who recommended for the patient to go for CT angiography of the neck and the cer ebral arteries for further evaluation and recommendation he was placed on antiplatelet therapy. 08/05: MRI of the brain showed nonspecific white matter demyelination, findings may be due to chronic small vessel ischemic disease. Mild sinus disease. EEG was abnormal due to intermittent left temporal sharp waves. This is suggestive of focal cortical neuronal dysfunction with cortical irritability and tendency for seizures. Dr. Guerra has started the patient on Trileptal 150 mg twice daily and may be increased to 300 mg twice daily. Patient was informed start medication if he developed a rash. Patient has a scheduled appointment with Dr. Davis on August 23. He recommends continuing aspirin and Plavix for now. Acetylcholine receptor antibiotics remain pending. If he remains stable overnight, he can be discharged home tomorrow. Patient had more episodes when putting ice on his neck. He did have one episode this morning but are less frequent today. Review of Systems Constitutional: Reports chronic headaches, Denies anorexia, Denies lethargy, Denies malaise, Denies weakness, Denies weight gain, Denies weight loss Eyes: denies blurred vision, denies bulging eye, denies decreased vision Ears, nose, mouth and throat: Denies dysphagia, Denies neck lump, Denies sore throat, Denies vertigo Cardiovascular: Denies chest pain, Denies decreased exercise tolerance, Denies dyspnea on exertion, Denies lightheadedness, Denies rapid heart beat, Denies shortness of breath, Denies syncope Respiratory: Denies congestion, Denies cough, Denies cough with sputum, Denies home oxygen, Denies sleep apnea, Denies snoring, Denies wheezing Gastrointestinal: Denies abdominal pain, Denies bloating, Denies BRBPR, Denies heartburn, Denies loss of appetite, Denies melena, Denies nausea, Denies vomiting Genitourinary: Reports decreased libido, Denies dysuria, Denies kidney stones, Denies nocturia, Denies polyuria Musculoskeletal: Denies myalgias Musculoskeletal: absent: ankle pain, ankle stiffness, ankle swelling, elbow pain, elbow stiffness, elbow swelling, foot pain, foot stiffness, foot swelling, hand pain, hand stiffness, hand swelling, hip pain, hip stiffness, hip swelling, knee pain, knee stiffness, knee swelling, shoulder pain, shoulder stiffness, shoulder swelling, wrist pain, wrist stiffness, wrist swelling Integumentary: Denies pruritus, Denies rash Neurological: Denies gait dysfunction, Denies head injury, Denies lack of coordination, Denies loss of vision, Denies memory loss, Denies migraines, Denies motor disturbance, Denies numbness, Denies paralysis, Denies paresthesias, Denies weakness Psychiatric: Denies anxiety, Denies depression Endocrine: Denies fatigue, Denies weight change Objective - Vital Signs Vital signs: Vital Signs Temp 97.5 F L 08/05/19 12:00 Pulse 76 08/05/19 12:00 Resp 16 08/05/19 12:00 BP 132/81 08/05/19 12:00 Pulse Ox 97 08/05/19 12:00 Intake & Output 08/04/19 08/05/19 08/05/19 18:59 06:59 18:59 Intake Total 694 30 510 Output Total 3 Balance 694 27 510 Weight 94.3 kg Intake: IV 10 30 30 0.9 10 10 Invasive Line 1 30 20 Oral 684 480 Output: Urine 3 Other: Voiding Method Toilet Toilet Toilet # Voids 450 - Exam Gen.: 73-year-old male. Patient is sitting in recliner and appears to be comfortable and in no acute distress. Daughter is at bedside. HEENT: Head is atraumatic, normocephalic, pupils were equal round reactive to light and accommodations, extraocular muscle movement were intact. Mucous membranes of the mouth was dry. Neck: Supple, no JVP, no carotid bruit, no lymphadenopathy. Chest: Decreased breath sounds at the bases, few rhonchi, no expiratory wheezes, no chest with tenderness, no intercostal retractions per he Heart: First heart sound is depressed, second heart sounds normal, there is systolic ejection murmur 2/6 located in the left sternal border. Abdomen: Soft, nontender, nondistended, positive bowel sounds, no hepatosplenomegaly Extremities: No edema, no calf tenderness, dorsalis pedis +2 bilaterally. Neurologic examination: Patient is awake alert and oriented 3, cranial nerves II-12 appear grossly intact, muscle power 5 out of 5 in upper and lower extremities bilaterally deep tendon reflexes were normal, no clonus, no pronator drift. - Labs CBC & Chem 7: 08/05/19 05:55 08/05/19 05:55 Labs: Abnormal Lab Results - Last 24 Hours (Table) 08/03/19 08/04/19 08/04/19 Range/Units 18:42 16:24 20:24 Sodium (137-145) mmol/L BUN (9-20) mg/dL Glucose (74-99) mg/dL POC Glucose (mg/dL) 100 H 100 H (75-99) mg/dL Hemoglobin A1c 6.6 H (4.0-6.0) % 08/05/19 08/05/19 08/05/19 Range/Units 05:55 05:56 11:39 Sodium 133 L (137-145) mmol/L BUN 22 H (9-20) mg/dL Glucose 109 H (74-99) mg/dL POC Glucose (mg/dL) 109 H 110 H (75-99) mg/dL Hemoglobin A1c (4.0-6.0) % Assessment and Plan Plan: 1. Acute transient ischemic attack ruled out. Episodes may be related to seizure activity. Neurology has started Trileptal 150 mg twice daily. Continue aspirin and Plavix 75 mg orally once every day, continue Crestor 10 mg orally once every day for secondary stroke prevention. Patient [facility] be [facility] floor. 2. Hypertension and hypertensive cardiovascular disease with left ventricular hypertrophy. Continue Olmesartan 40 mg orally once every day, may add small dose of hydrochlorothiazide 12.5 mg orally once every day. 3. Hyperlipidemia. Continue patient on low-cholesterol diet, continue with Crestor 20 mg orally once every day. 4. History of COPD. Continue patient on Symbicort 160/4.5 g 2 puffs inhalation twice every day. 5. Degenerative disc disease of the cervical spine with subluxation of C6 and 7. Had an MRI of the cervical spine not too long ago and appears to be stable. 6. History of hypogonadism. However the patient was taken off his testosterone due to side effects. 7. Impotence. Patient is using sildenafil as needed . 8. Occipital headache. Continue with gabapentin 100 mg orally 3 times every day. 9. DVT prophylaxis. Continue patient on heparin 5000 units subcutaneously every 12 hours. 10. GI prophylaxis. Continue Protonix 40 mg orally once every day. Patient is full code. Discharge plan: Home on Thursday Impression and plan of care have been directed as dictated by the signing physic ian. Shanthi Montano nurse practitioner acting as scribe for signing physician.
[2019-08-05 17:01] LABS: Glucose,Whole Blood 132 mg/dL (75-99)
[2019-08-05] MEDS: metFORMIN 500 MG TAB PO SCH (17:14)
[2019-08-05 20:38] LABS: Glucose,Whole Blood 104 mg/dL (75-99)
[2019-08-05 21:03] VITALS: RESP 18
[2019-08-06 06:01] LABS: Glucose,Whole Blood 119 mg/dL (75-99)
[2019-08-06] MEDS: INSULIN ASPART (NovoLOG) 100 UNIT/ML VIAL SQ SCH (06:02)
[2019-08-06] MEDS: ATORVASTATIN 20 MG TAB PO SCH (08:18)
[2019-08-06] MEDS: LOSARTAN 50 MG TAB PO SCH (08:18)
[2019-08-06] MEDS: HYDROCHLOROTHIAZIDE 25 MG TAB PO SCH (08:18)
[2019-08-06] MEDS: CLOPIDOGREL 75 MG TAB PO SCH (08:18)
[2019-08-06] MEDS: ASPIRIN 81 MG PO SCH (08:18)
[2019-08-06] MEDS: HEPARIN SODIUM,PORCINE 5,000 UNIT/ML 1 ML VIAL SQ SCH (08:19)
[2019-08-06] MEDS: SYMBICORT 160-4.5 MCG INHALER INHALATION SCH (08:19)
[2019-08-06] MEDS: OXcarbazepine 150 MG TAB PO SCH (08:24)
--- NOTE | 2019-08-06 10:13 | P.DS ---
Providers Date of admission: 08/05/19 13:54 Attending physician: Roseline Bradley Consults: 08/03/19 18:32 Consult Physician Routine Consulting Provider: Ratna Ames Consult Reason/Comments: tia Do you want consulting provider notified?: Yes Primary care physician: Roseline Bradley Hospital Course: This is 73 years old male who presented to the hospital with slurred speech and intractable headache evaluated by neurology with appropriate testing patient returned to be negative for stroke or risk factors for stroke EEG was done which showed abnormal waves suggesting small partial seizure patient was started on Trileptal twice daily and his symptoms improved and resolved during the hospital stay. Patient advised to follow-up with his primary care physician in 2-3 days regarding the possible chronic sinusitis and was prescribed Claritin daily at the time of the discharge on the top of his newly started medication including Trileptal and Plavix. Long discussion with patient and regarding medicatio n adherence and close follow-up outpatient with his primary care physician and patient felt stable from the medical standpoint for discharge Patient Condition at Discharge: Good Plan - Discharge Summary Discharge Rx Participant: No New Discharge Prescriptions: New Hydrochlorothiazide [Hydrodiuril] 25 mg PO DAILY #30 tab Clopidogrel [Plavix] 75 mg PO DAILY #30 tab OXcarbazepine [Trileptal] 150 mg PO BID #60 tab Continue Gabapentin [Neurontin] 100 mg PO TID PRN PRN Reason: Pain metFORMIN HCL [Glucophage] 500 mg PO AC-SUPPER Sildenafil Citrate [Viagra] 25 mg PO ONCE PRN PRN Reason: E.D. Budesonide/Formoterol Fumarate [Symbicort 160-4.5 Mcg Inhaler] 2 puff INHALATION RT-BID Rosuvastatin [Crestor] 10 mg PO DAILY Ipratropium-Albuterol Nebulize [Duoneb 0.5 mg-3 mg/3 ml Soln] 3 ml INHALATION RT-QID PRN PRN Reason: Shortness Of Breath Albuterol Sulfate [Proventil Hfa] 1 puff INHALATION RT-Q6H PRN PRN Reason: Shortness Of Breath Fluocinolone Acetonide [Synalar] 1 applic TOPICAL DAILY PRN PRN Reason: RECTAL AREA EPINEPHrine (Auto Inject) [Epipen] 0.3 mg IM ONCE PRN PRN Reason: Anaphylaxis Ubidecarenone [Co Q-10] 400 mg PO DAILY Olmesartan Medoxomil [Benicar] 40 mg PO DAILY Betamethasone Dipropionate [Diprolene AF 0.05% Cream] 1 applic TOPICAL BID PRN PRN Reason: Rash Aspirin EC [Ecotrin Low Dose] 81 mg PO DAILY Discharge Medication List Albuterol Sulfate [Proventil Hfa] 1 puff INHALATION RT-Q6H PRN 08/03/19 [History] Aspirin EC [Ecotrin Low Dose] 81 mg PO DAILY 08/03/19 [History] Betamethasone Dipropionate [Diprolene AF 0.05% Cream] 1 applic TOPICAL BID PRN 1 [History] Budesonide/Formoterol Fumarate [Symbicort 160-4.5 Mcg Inhaler] 2 puff INHALATION RT-BID 08/03/19 [History] EPINEPHrine (Auto Inject) [Epipen] 0.3 mg IM ONCE PRN 08/03/19 [History] Fluocinolone Acetonide [Synalar] 1 applic TOPICAL DAILY PRN 08/03/19 [History] Gabapentin [Neurontin] 100 mg PO TID PRN 08/03/19 [History] Ipratropium-Albuterol Nebulize [Duoneb 0.5 mg-3 mg/3 ml Soln] 3 ml INHALATION RT-QID PRN 08/03/19 [History] Olmesartan Medoxomil [Benicar] 40 mg PO DAILY 08/03/19 [History] Rosuvastatin [Crestor] 10 mg PO DAILY 08/03/19 [History] Sildenafil Citrate [Viagra] 25 mg PO ONCE PRN 08/03/19 [History] Ubidecarenone [Co Q-10] 400 mg PO DAILY 08/03/19 [History] metFORMIN HCL [Glucophage] 500 mg PO AC-SUPPER 08/03/19 [History] Clopidogrel [Plavix] 75 mg PO DAILY #30 tab 08/05/19 [Rx] Hydrochlorothiazide [Hydrodiuril] 25 mg PO DAILY #30 tab 08/05/19 [Rx] OXcarbazepine [Trileptal] 150 mg PO BID #60 tab 08/05/19 [Rx] Follow up Appointment(s)/Referral(s): Roseline Bradley MD [Primary Care Provider] - 1 Week Michael Davis DO [STAFF PHYSICIAN] - 1 Week (as scheduled) Discharge Disposition: HOME SELF-CARE
[2019-08-06 11:33] VITALS: BP 133/85; PULSE 75; TEMP 96.9
== END 2019-08-06 11:31 | disposition home or self-care (01) | DRG 101 ==
LOC: EC 17:54 → 3SCARD 19:37 → OBSVTOIN 08-05 13:54
PROVIDERS: ADMIT Internal Medicine; ATTEND Internal Medicine
DX: G40.109 Localization-related (focal) (partial) symptomatic epilepsy and epileptic syndromes with simple partial seizures, not intractable, without status epilepticus (principal); E11.9 Type 2 diabetes mellitus without complications; E78.5 Hyperlipidemia, unspecified; I11.9 Hypertensive heart disease without heart failure; J44.9 Chronic obstructive pulmonary disease, unspecified; M19.90 Unspecified osteoarthritis, unspecified site; M50.30 Other cervical disc degeneration, unspecified cervical region; Z79.51 Long term (current) use of inhaled steroids; Z79.82 Long term (current) use of aspirin; Z79.84 Long term (current) use of oral hypoglycemic drugs; Z79.899 Other long term (current) drug therapy; Z83.3 Family history of diabetes mellitus; J32.9 Chronic sinusitis, unspecified; Z87.891 Personal history of nicotine dependence
CPT/HCPCS: 36415; 70450; 70496; 70498; 70553; 71046; 72125; 80053; 80061; 83036; 83519; 84484; 85025; 85610; 85652; 85730; 86140; 93005; 94640; 95816; 96360; 99285

== ENCOUNTER → 2019-08-24 | Outpatient (CLI) | payer MEDICARE ==
--- NOTE | 2019-08-24 16:37 | MR ---
EXAMINATION TYPE: MR cervical spine wo con DATE OF EXAM: 08/24/2019 COMPARISON: Plain film 08/03/2019 HISTORY: Neck pain, headaches x 3 mos, no trauma TECHNIQUE: Multiplanar, multisequence images of the cervical spine were acquired. C2-C3: Posterior broad-based disc bulge causes minimal anterior mass effect on the thecal sac. There is right-sided foraminal encroachment due to uncovertebral joint hypertrophy and facet arthropathy. C3-C4: Spinal stenosis is present due to circumferential posterior broad-based disc bulge, posterior extension endplate disc complex, uncovertebral joint hypertrophy and facet arthropathy results in simone ateral foraminal encroachment, there is moderate central stenosis. C4-C5: Posterior broad-based disc bulge causes mild anterior mass effect on the thecal sac. There is foraminal encroachment right greater than left, no significant central stenosis. C5-C6: Mild right-sided foraminal encroachment is present. No significant central stenosis. Minimal p osterior disc bulge causes slight anterior mass effect on the thecal sac. C6-C7: Posterior disc bulge causes mild anterior mass effect on the thecal sac. No significant centra l stenosis or foraminal encroachment. C7-T1: No evidence for degenerative disc disease. No disc bulge/herniation or protrusion. No Canal stenosis. Foramina are patent bilaterally. Cervical segments are intact. There is normal alignment. Cervical spinal cord is of normal signal. Craniovertebral junction relationships are within normal limits. There is multilevel spondylosis. L oss of disc height signal is present at the intervertebral levels especially C3-4, C4-5, there is min imal anterolisthesis grade 1 C6-7, C7-T1. Suspect a spinal curvature. IMPRESSION: Degenerative disc disease, multilevel foraminal encroachment.
== END | disposition home or self-care (01) ==
LOC: RADMRIMAIN 15:06
PROVIDERS: ATTEND Psychiatry & Neurology Neurology
DX: M50.30 Other cervical disc degeneration, unspecified cervical region (principal); R93.7 Abnormal findings on diagnostic imaging of other parts of musculoskeletal system
CPT/HCPCS: 72141

== ENCOUNTER → 2020-03-13 | Outpatient (CLI) | payer MEDICARE ==
[2020-03-13 11:52] LABS: Basophils % (A) 1 %; Eosinophils # (A) 0.2 k/uL (0-0.7); Eosinophils % (A) 3 %; HCT 36.6 % (39.0-53.0); HGB 12.1 gm/dL (13.0-17.5); Lymphocytes % (A) 21 %; MCH 30.2 pg (25.0-35.0); MCV 91.4 fL (80.0-100.0); Mean Platelet Volume 7.1; Monocytes # (A) 0.3 k/uL (0-1.0); Monocytes % (A) 7 %; Neutrophils # (A) 3.2 k/uL (1.3-7.7); Neutrophils % (A) 67 %; Platelet Count 252 k/uL (150-450); RBC 4.01 m/uL (4.30-5.90); WBC 4.7 k/uL (3.8-10.6)
[2020-03-13 17:51] LABS: African American GFR (CKD) 75.7 (60.0-200.0); Albumin 4.9 g/dL (3.80-4.90); Albumin/Globulin Ratio 2.13 (1.60-3.17); Anion Gap 9.1 mmol/L (4.00-12.00); BUN/Creat Ratio 21.82 Ratio (12.00-20.00); Calcium 9.7 mg/dL (8.7-10.3); Carbon Dioxide 23.9 mmol/L (21.6-31.8); Chol/HDL Ratio 2.88; Globulin 2.3 g/dL (1.6-3.3); LDL Cholesterol,Calculated 98.2 mg/dL (0.0-131.0); Non-African American GFR(CKD) 65.3 (60.0-200.0); Potassium 4.5 mmol/L (3.5-5.5); Total Bilirubin 0.5 mg/dL (0.3-1.2); Total Protein 7.2 g/dL (6.2-8.2); VLDL Calculation 23.8 mg/dL (5.00-40.00)
[2020-03-13 18:14] LABS: Hemoglobin A1C 6.1 % (4.0-6.0)
== END | disposition home or self-care (01) ==
LOC: LABWHC1 10:39
PROVIDERS: ATTEND Internal Medicine
DX: Z00.00 Encounter for general adult medical examination without abnormal findings (principal); E11.9 Type 2 diabetes mellitus without complications; E78.2 Mixed hyperlipidemia; N40.0 Benign prostatic hyperplasia without lower urinary tract symptoms
CPT/HCPCS: 36415; 80053; 80061; 82043; 82570; 83036; 84153; 85025

== ENCOUNTER 2020-04-22 19:38 | Emergency (ER) | payer MEDICARE ==
[2020-04-22 19:56] VITALS: RESP 18; TEMP 98.2
[2020-04-22] MEDS ORDERED: SODIUM CHLORIDE 0.9% 1,000 ML IV STA (20:23)
--- NOTE | 2020-04-22 20:28 | ED ---
Neuro HPI - General Chief Complaint: Neuro Symptoms/Deficit Stated Complaint: Neuro symptoms Time Seen by Provider: 04/22/20 19:50 Source: patient, RN notes reviewed, old records reviewed Mode of arrival: ambulatory Limitations: no limitations - History of Present Illness Is the patient presenting with stroke symptoms?: Yes -: days(s) Initial Comments: This is a 34-year-old male DF for evaluation high blood pressure medical blood sugar or diabetic history. Patient has history of stroke or TIA. Patient coming in with slurred speech difficulty swallowing and eating, mumbling, tongue deviation to the left. Also Bunning of intermittent headaches. No recent travel history or sick contacts. Patient has worked up extensively for both stroke and seizure. Location: speech, dysarthria, other (Tongue deviation to the left) History of same: Yes Place: home Severity: mild Improves With: none Worsens With: none On Anticoagulants: No Context: gradual onset Associated Symptoms: denies other symptoms Treatments Prior to Arrival: none - Related Data Home Medications: Home Medications Medication Instructions Recorded Confirmed Albuterol Sulfate [Proventil Hfa] 1 puff INHALATION RT-Q6H PRN 08/03/19 08/03/19 Aspirin EC [Ecotrin Low Dose] 81 mg PO DAILY 08/03/19 08/03/19 Betamethasone Dipropionate 1 applic TOPICAL BID PRN 08/03/19 08/03/19 [Diprolene AF 0.05% Cream] Budesonide/Formoterol Fumarate 2 puff INHALATION RT-BID 08/03/19 08/03/19 [Symbicort 160-4.5 Mcg Inhaler] EPINEPHrine (Auto Inject) [Epipen] 0.3 mg IM ONCE PRN 08/03/19 08/03/19 Fluocinolone Acetonide [Synalar] 1 applic TOPICAL DAILY PRN 08/03/19 08/03/19 Gabapentin [Neurontin] 100 mg PO TID PRN 08/03/19 08/03/19 Ipratropium-Albuterol Nebulize 3 ml INHALATION RT-QID PRN 08/03/19 08/03/19 [Duoneb 0.5 mg-3 mg/3 ml Soln] Olmesartan Medoxomil [Benicar] 40 mg PO DAILY 08/03/19 08/03/19 Rosuvastatin [Crestor] 10 mg PO DAILY 08/03/19 08/03/19 Sildenafil Citrate [Viagra] 25 mg PO ONCE PRN 08/03/19 08/03/19 Ubidecarenone [Co Q-10] 400 mg PO DAILY 08/03/19 08/03/19 metFORMIN HCL [Glucophage] 500 mg PO AC-SUPPER 08/03/19 08/03/19 Previous Rx's Medication Instructions Recorded Clopidogrel [Plavix] 75 mg PO DAILY #30 tab 08/05/19 Hydrochlorothiazide [Hydrodiuril] 25 mg PO DAILY #30 tab 08/05/19 OXcarbazepine [Trileptal] 150 mg PO BID #60 tab 08/05/19 Allergies/Adverse Reactions: Allergies Allergy/AdvReac Type Severity Reaction Status Date / Time adhesive tape Allergy Rash/Hives Verified 04/22/20 19:56 fire ant Allergy Anaphylaxis Verified 08/04/19 15:42 Review of Systems ROS Statement: Those systems with pertinent positive or pertinent negative responses have been documented in the HPI. ROS Other: All systems not noted in ROS Statement are negative. General Exam - General Exam Comments Initial Comments: Tongue deviation to the left and slurred speech Limitations: no limitations General appearance: alert, in no apparent distress Head exam: Present: atraumatic, normocephalic, normal inspection Eye exam: Present: normal appearance, PERRL, EOMI. Absent: scleral icterus, conjunctival injection, periorbital swelling ENT exam: Present: normal exam, mucous membranes moist Neck exam: Present: normal inspection. Absent: tenderness, meningismus, lymphadenopathy Respiratory exam: Present: normal lung sounds bilaterally. Absent: respiratory distress, wheezes, rales, rhonchi, stridor Cardiovascular Exam: Present: regular rate, normal rhythm, normal heart sounds. Absent: systolic murmur, diastolic murmur, rubs, gallop, clicks GI/Abdominal exam: Present: soft, normal bowel sounds. Absent: distended, tenderness, guarding, rebound, rigid Extremities exam: Present: normal inspection, full ROM, normal capillary refill. Absent: tenderness, pedal edema, joint swelling, calf tenderness Back exam: Present: normal inspection Neurological exam: Present: alert, oriented X3, CN II-XII intact Psychiatric exam: Present: normal affect, normal mood Skin exam: Present: warm, dry, intact, normal color. Absent: rash Stroke MDM - Lab Data Result diagrams: 04/22/20 20:34 04/22/20 20:34 Lab Results 04/22/20 04/22/20 04/22/20 Range/Units 20:34 20:34 20:34 WBC 9.3 (3.8-10.6) k/uL RBC 3.70 L (4.30-5.90) m/uL Hgb 11.6 L (13.0-17.5) gm/dL Hct 32.8 L (39.0-53.0) % MCV 88.6 (80.0-100.0) fL MCH 31.3 (25.0-35.0) pg MCHC 35.3 (31.0-37.0) g/dL RDW 12.9 (11.5-15.5) % Plt Count 210 (150-450) k/uL Neutrophils % (Manual) 54 % Lymphocytes % (Manual) 22 % Monocytes % (Manual) 6 % Eosinophils % (Manual) 18 % Neutrophils # (Manual) 5.02 (1.3-7.7) k/uL Lymphocytes # (Manual) 2.05 (1.0-4.8) k/uL Monocytes # (Manual) 0.56 (0-1.0) k/uL Eosinophils # (Manual) 1.67 H (0-0.7) k/uL Nucleated RBCs 0 (0-0) /100 WBC Manual Slide Review Performed PT 10.3 (9.0-12.0) sec INR 1.0 (<1.2) APTT 24.9 (22.0-30.0) sec Sodium 134 L (137-145) mmol/L Potassium 4.0 (3.5-5.1) mmol/L Chloride 100 (98-107) mmol/L Carbon Dioxide 24 (22-30) mmol/L Anion Gap 10 mmol/L BUN 25 H (9-20) mg/dL Creatinine 1.12 (0.66-1.25) mg/dL Est GFR (CKD-EPI)AfAm 74 (>60 ml/min/1.73 sqM) Est GFR (CKD-EPI)NonAf 64 (>60 ml/min/1.73 sqM) Glucose 119 H (74-99) mg/dL Calcium 9.6 (8.4-10.2) mg/dL Total Bilirubin 0.3 (0.2-1.3) mg/dL AST 28 (17-59) U/L ALT 20 (4-49) U/L Alkaline Phosphatase 78 (38-126) U/L Troponin I (0.000-0.034) ng/mL Total Protein 6.7 (6.3-8.2) g/dL Albumin 4.4 (3.5-5.0) g/dL 04/22/20 Range/Units 20:34 WBC (3.8-10.6) k/uL RBC (4.30-5.90) m/uL Hgb (13.0-17.5) gm/dL Hct (39.0-53.0) % MCV (80.0-100.0) fL MCH (25.0-35.0) pg MCHC (31.0-37.0) g/dL RDW (11.5-15.5) % Plt Count (150-450) k/uL Neutrophils % (Manual) % Lymphocytes % (Manual) % Monocytes % (Manual) % Eosinophils % (Manual) % Neutrophils # (Manual) (1.3-7.7) k/uL Lymphocytes # (Manual) (1.0-4.8) k/uL Monocytes # (Manual) (0-1.0) k/uL Eosinophils # (Manual) (0-0.7) k/uL Nucleated RBCs (0-0) /100 WBC Manual Slide Review PT (9.0-12.0) sec INR (<1.2) APTT (22.0-30.0) sec Sodium (137-145) mmol/L Potassium (3.5-5.1) mmol/L Chloride (98-107) mmol/L Carbon Dioxide (22-30) mmol/L Anion Gap mmol/L BUN (9-20) mg/dL Creatinine (0.66-1.25) mg/dL Est GFR (CKD-EPI)AfAm (>60 ml/min/1.73 sqM) Est GFR (CKD-EPI)NonAf (>60 ml/min/1.73 sqM) Glucose (74-99) mg/dL Calcium (8.4-10.2) mg/dL Total Bilirubin (0.2-1.3) mg/dL AST (17-59) U/L ALT (4-49) U/L Alkaline Phosphatase (38-126) U/L Troponin I <0.012 (0.000-0.034) ng/mL Total Protein (6.3-8.2) g/dL Albumin (3.5-5.0) g/dL - NIH Stroke Scale 1a. Level of Consciousness: (0) alert 1b. LOC Questions: (0) answers correctly 1c. LOC Commands: (0) performs tasks correctly 2. Best Gaze: (0) normal 3. Visual: (0) no visual loss 4. Facial Palsy: (0) normal symmetrical movement 5a. Motor Arm Left: (0) no drift 5b. Motor Arm Right: (0) no drift 6a. Motor Leg Left: (0) no drift 6b. Motor Leg Right: (0) no drift 7. Limb Ataxia: (0) absent 8. Sensory: (0) normal 9. Best Language: (1) mild/moderate aphasia 10. Dysarthria: (0) normal 11. Extinction/Inattention: (0) no abnormality - Thrombolytic Inclusion/Exclusion Thrombolytic Exclusion Criteria: Symptom Onset > 4.5 Hours - Medical Decision Making 74 male DF for evaluation, patient presents with CVA today. Patient be admitted for neurology evaluation and management - Radiology Data Radiology results: report reviewed, image reviewed - EKG Data -: EKG Interpreted by Me (EKG shows sinus 73, LA 194 QRS 82 QTC 437) Past Medical History Past Medical History: COPD, Hyperlipidemia, Hypertension, Prostate Disorder Additional Past Medical History / Comment(s): headache History of Any Multi-Drug Resistant Organisms: None Reported Past Surgical History: Back Surgery, Orthopedic Surgery Additional Past Surgical History / Comment(s): lymph node, rectal fistula, sinus surgery, L knee, Rshoulder, R knee, B carpal tunnel, Hemmorhoidectomy Past Psychological History: No Psychological Hx Reported Smoking Status: Former smoker Past Alcohol Use History: Occasional Past Drug Use History: None Reported - Past Family History Mother Family Medical History: No Reported History (Mother at age of 50 from unknown cause) Father Family Medical History: No Reported History (Father at age of 85 from unknown cause.) Brother(s) Family Medical History: No Reported History (Patient has one brother no major medical problems.) Sister(s) Family Medical History: Diabetes Mellitus, Thyroid Disorder (Patient had one sister who from more of a vehicle accident and had history of diabetes hypothyroidism and obesity.) Daughter(s) Family Medical History: Diabetes Mellitus, Hypertension (Patient has one daughter with diabetes hypertension and also arthritis per) Son(s) Family Medical History: No Reported History (Patient has one son no major medical problems.) Course Vital Signs 04/22/20 04/22/20 19:50 22:02 Temperature 98.2 F Pulse Rate 91 81 Respiratory 18 18 Rate Blood Pressure 130/73 154/85 O2 Sat by Pulse 97 97 Oximetry - Reevaluation(s) Reevaluation #1: 04/22/20 22:44 Medical records reviewed Reevaluation #2: 04/22/20 22:44 No change in symptoms here in the ER Reevaluation #3: 04/22/20 22:45 spoke w patient regarding findings at length and questions are answered - Consultations Consultation #1: spoke w Dr Bradley will see patient in the AM Disposition Clinical Impression: Cerebrovascular accident (CVA), TIA (transient ischemic attack) Disposition: HOME SELF-CARE Condition: Fair Instructions (If sedation given, give patient instructions): Stroke (DC), Transient Ischemic Attack (ED) Is patient prescribed a controlled substance at d/c from ED?: No Referrals: Roseline Bradley MD [Primary Care Provider] - 1-2 days
[2020-04-22 20:55] LABS: Albumin 4.4 g/dL (3.5-5.0); Calcium 9.6 mg/dL (8.4-10.2); Total Bilirubin 0.3 mg/dL (0.2-1.3); Total Protein 6.7 g/dL (6.3-8.2)
[2020-04-22 20:58] LABS: HCT 32.8 % (39.0-53.0); HGB 11.6 gm/dL (13.0-17.5); MCH 31.3 pg (25.0-35.0); MCHC 35.3 g/dL (31.0-37.0); MCV 88.6 fL (80.0-100.0); Mean Platelet Volume 7.7; Platelet Count 210 k/uL (150-450); RDW 12.9 % (11.5-15.5); WBC 9.3 k/uL (3.8-10.6)
[2020-04-22 21:06] LABS: Partial Thromboplastin Time 24.9 sec (22.0-30.0); Prothrombin Time 10.3 sec (9.0-12.0)
[2020-04-22 21:29] LABS: Eosinophils # (M) 1.67 k/uL (0-0.7); Lymphocytes # (M) 2.05 k/uL (1.0-4.8); Monocytes # (M) 0.56 k/uL (0-1.0); Neutrophils # (M) 5.02 k/uL (1.3-7.7); Neutrophils % (M) 54 %; Nucleated Red Blood Cells 0 /100 WBC (0-0); Total Cells Counted 100
--- NOTE | 2020-04-22 21:36 | CT ---
EXAMINATION TYPE: CT brain wo con for TPA DATE OF EXAM: 04/22/2020 COMPARISON: 08/03/2019 HISTORY: weakness, slurred speech CT DLP: 1082.9 mGycm Automated exposure control for dose reduction was used. There is mild cerebral atrophy. There is no mass effect nor midline shift. There is no sign of intrac ranial hemorrhage. The calvarium is intact. Temporal bones are intact. IMPRESSION: Negative CT scan of the brain. No change compared to old exam.
--- NOTE | 2020-04-22 21:47 | CT ---
EXAMINATION TYPE: CT angio head neck DATE OF EXAM: 04/22/2020 COMPARISON: 08/04/2019 HISTORY: weakness, slurred speech CT DLP: 549.4 mGycm Automated exposure control for dose reduction was used. CONTRAST: Performed with IV Contrast, patient injected with 65cc mL of Isovue 370. There are 3-D post processed images. Images obtained from the aortic arch to the vertex of the brain. There is normal branching pattern of the great vessels on the aortic arch. There is bilateral arteria l flow in the subclavian arteries. There is arterial flow in both vertebral arteries. There is arteri al flow in the vertebrobasilar artery system. There is arterial flow in the common internal and external carotid arteries bilaterally. There is majo e plaque formation at the carotid artery bifurcation on the right side. There is no significant steno sis. Lumen narrowing is less than 15%. There is no evidence of any stenosis of the left internal buck tid artery. There is arterial flow in the anterior middle and posterior cerebral arteries. I see no evidence of i ntracranial arterial stenosis. There is no mass effect. There is no sign of aneurysm or neovascularit y. There is normal contrast opacification of the venous sinuses. IMPRESSION: Negative CT angiogram of the neck. Negative CT angiogram of the brain. No evidence of hemodynamic raphael nosis. No adverse change compared to old exam.
[2020-04-22] MEDS ORDERED: MORPHINE SULFATE 4 MG/ML SYRINGE IVP STA (21:57)
[2020-04-22 23:15] VITALS: BP 134/80; PULSE 79
== END 2020-04-22 23:15 | disposition home or self-care (01) ==
LOC: EC 19:38
DX: I63.9 Cerebral infarction, unspecified (principal); R13.10 Dysphagia, unspecified; R47.81 Slurred speech; R47.1 Dysarthria and anarthria; J44.9 Chronic obstructive pulmonary disease, unspecified; E78.5 Hyperlipidemia, unspecified; I10 Essential (primary) hypertension; N42.9 Disorder of prostate, unspecified; Z87.891 Personal history of nicotine dependence; Z79.890 Hormone replacement therapy; Z79.51 Long term (current) use of inhaled steroids; Z79.899 Other long term (current) drug therapy; Z91.048 Other nonmedicinal substance allergy status
CPT/HCPCS: 36415; 93005; 80053; 84484; 85025; 85610; 85730; 70496; 70450; 70498; 99285; 96374; 96361; J2270; Q9967

== ENCOUNTER → 2020-04-27 | Outpatient (CLI) | payer MEDICARE | END | disposition home or self-care (01) | LOC: LABWHC1 09:31 | PROVIDERS: ATTEND Psychiatry & Neurology Neurology | DX: R25.2 Cramp and spasm (principal) | CPT/HCPCS: 36415; 82550; 82607; 85652 ==

== ENCOUNTER → 2020-07-17 | Outpatient (CLI) | payer MEDICARE ==
--- NOTE | 2020-07-17 10:54 | US ---
EXAMINATION TYPE: US duplex aorta DATE OF EXAM: 07/17/2020 COMPARISON: NONE CLINICAL HISTORY: R09.89 BRUIT. Abnormal physical exam EXAM MEASUREMENTS: Abdominal Aorta: Proximal: 2.0cm by 1.9 cm transversely Mid: 1.9cm by 1.9 cm transversely Distal: 1.4cm by 1.3 cm transversely Bifurcation: Right: 1.2cm by 0.7 cm Left: 1.1cm by 1.0 cm Some portions of aorta obscured by bowel gas, portions visualized show no AAA. IMPRESSION: Visualized portion of the abdominal aorta show no greater than 3.0 cm AAA.
== END | disposition home or self-care (01) ==
LOC: RADUSWWP 10:10
PROVIDERS: ATTEND Internal Medicine
DX: R09.89 Other specified symptoms and signs involving the circulatory and respiratory systems (principal)
CPT/HCPCS: 93979

== ENCOUNTER → 2021-03-26 | Outpatient (CLI) | payer MEDICARE ==
--- NOTE | 2021-03-26 15:52 | CT ---
EXAMINATION TYPE: CT ChestAbdPelvis w con DATE OF EXAM: 03/26/2021 COMPARISON: CT chest 09/05/2013 HISTORY: Weight loss, anemia. Shortness of breath and increased urinary frequency. CT DLP: 1739.2 mGycm Automated exposure control for dose reduction was used. CONTRAST: CT scan of the chest, abdomen and pelvis is performed with Oral Contrast and with IV Contrast, patien t injected with 100 mL of Isovue M300. FINDINGS: There is a suspected chondroid lesion partially imaged within the right humerus proximally, similar to prior exam, similar-appearing lesion present within the proximal left femur, findings lik ramya represent enchondromas. LUNGS: The lungs are remarkable for extensive centrilobular emphysematous change, a stable 3 mm nodul e is indeterminate in the subpleural location right upper lobe, axial image #31, there is no concerni ng parenchymal mass or nodule identified. Minimal subpleural thickening noted axial image 29 in the l eft upper lobe level There is no pleural effusion or pneumothorax seen. The tracheobronchial tree i s patent. Eventration of the diaphragms noted. MEDIASTINUM: There are no greater than 1 cm hilar or mediastinal lymph nodes. No pericardial effusi on is seen. There are coronary artery calcifications present. AORTA: No significant abnormality is seen. OTHER: No additional significant abnormality is seen. LIVER/GB: No significant abnormality is appreciated. PANCREAS: No significant abnormality is seen. SPLEEN: No significant abnormality is seen. ADRENALS: No significant abnormality is seen. KIDNEYS: Cortical cysts are associated with the kidneys. REPRODUCTIVE ORGANS: There is some calcification associated with the prostate, inferior impression is noted in the urinary bladder BOWEL: Extensive diverticular changes associated with the sigmoid colon. No evident appendicitis. FREE AIR: No Free Air visible. ASCITES: None seen. RETROPERITONEAL ADENOPATHY: No retroperitoneal adenopathy is seen. LYMPH NODES: No greater than 1 cm abdominal or pelvic lymph nodes are appreciated. URINARY BLADDER: Urinary bladder wall shows a thickened appearance is not distended, there may be ch ronic outlet obstruction, difficult to exclude cystitis PELVIC ADENOPATHY: None visualized. OSSEOUS STRUCTURES: There is ankylosis of the sacroiliac joints, degenerative disc changes are prese nt at the lower lumbar spine, suspected ankylosis at the lower lumbar spine anteriorly, L5-S1, questi on laminectomy changes dorsally, there is multilevel facet arthropathy greatest at the lower lumbar s pine, lumbosacral junction. IMPRESSION: Diverticulosis. Findings in the urinary bladder as described, soft tissue extends to caus e an inferior impression along the urinary bladder, consider urology consult as indicated. Bone findi ngs as described above, degenerative disc disease and facet arthropathy, possible enchondroma within the proximal left femur, proximal right humerus, consider bone scan as indicated. Coronary artery dis ease and emphysema.
== END | disposition home or self-care (01) ==
LOC: RADCTMAIN 11:53
PROVIDERS: ATTEND Internal Medicine
DX: K57.90 Diverticulosis of intestine, part unspecified, without perforation or abscess without bleeding (principal); J43.9 Emphysema, unspecified; I25.10 Atherosclerotic heart disease of native coronary artery without angina pectoris
CPT/HCPCS: 82565; 84520; 71260; 74177; 36415; Q9967 ×2

== ENCOUNTER 2021-09-03 18:34 | Emergency (ER) | payer MEDICARE ==
[2021-09-03 19:22] VITALS: TEMP 97.8
[2021-09-03] MEDS ORDERED: DEXAMETHASONE SOD PHOSPHATE 10 MG/ML 1 ML VIAL IM STA (20:44)
--- NOTE | 2021-09-03 20:45 | ED ---
URI HPI - General Chief Complaint: Upper Respiratory Infection Stated Complaint: fever, vomiting Time Seen by Provider: 09/03/21 20:28 Source: patient, RN notes reviewed Mode of arrival: ambulatory Limitations: no limitations - History of Present Illness Initial Comments: Patient is a 75-year-old male that presents to the emergency department complaining of upper respiratory tract symptoms mild fever cough. Patient was a Covid test. Patient is otherwise well-appearing resting comfortably in bed in no apparent distress or pain. She denied any chest pain headache nausea vomiting diarrhea constipation fever fatigue chills. - Related Data Home Medications Medication Instructions Recorded Confirmed Albuterol Sulfate [Proventil Hfa] 1 puff INHALATION RT-Q4H PRN 08/03/19 04/22/20 Aspirin EC [Ecotrin Low Dose] 162 mg PO DAILY 08/03/19 04/22/20 Betamethasone Dipropionate 1 applic TOPICAL BID PRN 08/03/19 04/22/20 [Diprolene AF 0.05% Cream] Budesonide/Formoterol Fumarate 2 puff INHALATION RT-BID 08/03/19 04/22/20 [Symbicort 160-4.5 Mcg Inhaler] EPINEPHrine (Auto Inject) [Epipen] 0.3 mg IM ONCE PRN 08/03/19 04/22/20 Fluocinolone Acetonide [Synalar] 1 applic TOPICAL BID PRN 08/03/19 04/22/20 Ipratropium-Albuterol Nebulize 3 ml INHALATION RT-QID PRN 08/03/19 04/22/20 [Duoneb 0.5 mg-3 mg/3 ml Soln] Olmesartan Medoxomil [Benicar] 40 mg PO DAILY 08/03/19 04/22/20 Rosuvastatin [Crestor] 10 mg PO DAILY 08/03/19 04/22/20 Sildenafil Citrate [Viagra] 25 mg PO ONCE PRN 08/03/19 04/22/20 Ubidecarenone [Co Q-10] 400 mg PO DAILY 08/03/19 04/22/20 metFORMIN HCL [Glucophage] 500 mg PO AC-BID 08/03/19 04/22/20 Acetaminophen Tab [Tylenol] 650 mg PO Q6H PRN 04/22/20 04/22/20 Amoxicillin 2,000 mg PO ONCE PRN 04/22/20 04/22/20 Dutasteride/Tamsulosin HCl [Elizabeth 1 cap PO DAILY 04/22/20 04/22/20 0.5-0.4 mg Capsule] Ibuprofen [Motrin] 800 mg PO BID PRN 04/22/20 04/22/20 Multivit-Min/FA/Lycopen/Lutein 1 tab PO HS 04/22/20 04/22/20 [Centrum Silver Men Tablet] Natural Vitamin K2 As Mk-7 100 1 cap PO DAILY 04/22/20 04/22/20 Potassium Gluconate [Potassium 99 mg PO AC-BRKFST 04/22/20 04/22/20 Gluconate ER] Testosterone Cypionate 200 mg IM Q21D 04/22/20 04/22/20 [Depo-Testosterone] Turmeric 1950mg 1 cap PO DAILY 04/22/20 04/22/20 amLODIPine [Norvasc] 10 mg PO HS 04/22/20 04/22/20 hydroCHLOROthiazide [Hydrodiuril] 25 mg PO BID 04/22/20 04/22/20 Allergies Allergy/AdvReac Type Severity Reaction Status Date / Time adhesive tape Allergy Rash/Hives Verified 04/22/20 19:56 fire ant Allergy Anaphylaxis Verified 08/04/19 15:42 Review of Systems ROS Statement: Those systems with pertinent positive or pertinent negative responses have been documented in the HPI. ROS Other: All systems not noted in ROS Statement are negative. Past Medical History Past Medical History: COPD, Hyperlipidemia, Hypertension, Prostate Disorder Additional Past Medical History / Comment(s): headache History of Any Multi-Drug Resistant Organisms: None Reported Past Surgical History: Back Surgery, Orthopedic Surgery Additional Past Surgical History / Comment(s): lymph node, rectal fistula, sinus surgery, L knee, Rshoulder, R knee, B carpal tunnel, Hemmorhoidectomy Past Psychological History: No Psychological Hx Reported Smoking Status: Former smoker Past Alcohol Use History: Occasional Past Drug Use History: None Reported - Past Family History Mother Family Medical History: No Reported History (Mother at age of 50 from unknown cause) Father Family Medical History: No Reported History (Father at age of 85 from unknown cause.) Brother(s) Family Medical History: No Reported History (Patient has one brother no major medical problems.) Sister(s) Family Medical History: Diabetes Mellitus, Thyroid Disorder (Patient had one sister who from more of a vehicle accident and had history of diabetes hypothyroidism and obesity.) Daughter(s) Family Medical History: Diabetes Mellitus, Hypertension (Patient has one daughter with diabetes hypertension and also arthritis per) Son(s) Family Medical History: No Reported History (Patient has one son no major medical problems.) General Exam Limitations: no limitations General appearance: alert, in no apparent distress Head exam: Present: atraumatic, normocephalic, normal inspection Eye exam: Present: normal appearance, PERRL, EOMI. Absent: scleral icterus, conjunctival injection, periorbital swelling ENT exam: Present: normal exam, mucous membranes moist Neck exam: Present: normal inspection Respiratory exam: Present: normal lung sounds bilaterally. Absent: respiratory distress, wheezes, rales, rhonchi, stridor Cardiovascular Exam: Present: regular rate, normal rhythm, normal heart sounds. Absent: systolic murmur, diastolic murmur, rubs, gallop, clicks GI/Abdominal exam: Present: soft, normal bowel sounds. Absent: distended, tenderness, guarding, rebound, rigid Extremities exam: Present: normal inspection, full ROM, normal capillary refill. Absent: tenderness, pedal edema, joint swelling, calf tenderness Neurological exam: Present: alert, oriented X3 Psychiatric exam: Present: normal affect, normal mood Skin exam: Present: warm, dry, intact, normal color. Absent: rash Course Vital Signs 09/03/21 19:20 Temperature 97.8 F Pulse Rate 61 Respiratory 19 Rate Blood Pressure 115/63 O2 Sat by Pulse 95 Oximetry Medical Decision Making - Medical Decision Making Every 5-year-old male requesting Covid test due to upper respiratory tract symptoms. Covid test ordered. Covid test positive. Patient does meet criteria for monoclonal antibody infusion. He does wish to undergo IV infusion. Patient is agreeable with discharge home after. Case discussed with Dr. Caruso, patient can discharge home. - Lab Data Lab Results 09/03/21 Range/Units 19:19 Coronavirus (PCR) Detected A (Not Detectd) Disposition Clinical Impression: COVID Disposition: HOME SELF-CARE Condition: Stable Instructions (If sedation given, give patient instructions): Coronavirus Disease 2019 (COVID-19) Additional Instructions: Please return to the Emergency Department if symptoms worsen or any other concerns. Follow-up with primary care 1-2 days. Quarantine per CDC guidelines. Take Tylenol Motrin as needed for fever every 3 hours. Is patient prescribed a controlled substance at d/c from ED?: No Referrals: Roseline Bradley MD [Primary Care Provider] - 1-2 days Time of Disposition: 20:44
[2021-09-03] MEDS ORDERED: DEXAMETHASONE SOD PHOSPHATE 10 MG/ML 1 ML VIAL IVP STA (20:51)
[2021-09-03] MEDS ORDERED: SODIUM CHLORIDE 0.9% 50 ML IVPB ONE (21:00)
[2021-09-03] MEDS ORDERED: BAMLANIVIMAB (EUA) 700 MG, ETESEVIMAB (EUA) 1,400 MG in SODIUM CHLORIDE 0.9% 50 ML IVPB ONE (21:00)
[2021-09-03 22:59] VITALS: BP 100/65; PULSE 75; RESP 18
== END 2021-09-03 23:01 | disposition home or self-care (01) ==
LOC: EC 18:34
DX: U07.1 COVID-19 (principal); J44.9 Chronic obstructive pulmonary disease, unspecified; I10 Essential (primary) hypertension; E78.5 Hyperlipidemia, unspecified; Z87.891 Personal history of nicotine dependence; Z79.1 Long term (current) use of non-steroidal anti-inflammatories (NSAID); Z79.84 Long term (current) use of oral hypoglycemic drugs; Z79.82 Long term (current) use of aspirin; Z79.51 Long term (current) use of inhaled steroids; Z79.899 Other long term (current) drug therapy
CPT/HCPCS: 87635; 99283; 96365; 96375; J1100; J3490

== ENCOUNTER 2021-09-05 10:38 | Emergency (ER) | payer MEDICARE ==
[2021-09-05] MEDS ORDERED: SODIUM CHLORIDE 0.9% 1,000 ML IV STA (11:01)
[2021-09-05 11:06] VITALS: PULSE 77; RESP 18
[2021-09-05 12:05] LABS: Basophils % (A) 0 %; Eosinophils % (A) 0 %; HCT 29.5 % (39.0-53.0); HGB 10.4 gm/dL (13.0-17.5); Lymphocytes # (A) 0.5 k/uL (1.0-4.8); Lymphocytes % (A) 8 %; MCH 31.1 pg (25.0-35.0); MCHC 35.1 g/dL (31.0-37.0); MCV 88.8 fL (80.0-100.0); Mean Platelet Volume 7.7; Monocytes # (A) 0.5 k/uL (0-1.0); Monocytes % (A) 9 %; Neutrophils % (A) 82 %; Platelet Count 234 k/uL (150-450); RBC 3.32 m/uL (4.30-5.90); WBC 6.1 k/uL (3.8-10.6)
[2021-09-05 12:28] LABS: Albumin 3.4 g/dL (3.5-5.0); Calcium 8.4 mg/dL (8.4-10.2); Total Bilirubin 0.2 mg/dL (0.2-1.3)
[2021-09-05 12:29] LABS: Appearance,Urine Clear (Clear); Bilirubin,Urine Negative (Negative); Blood,Urine Negative (Negative); Color,Urine Yellow; Glucose,Urine (UA) Negative (Negative); Ketones,Urine Negative (Negative); Leukocyte Esterase,Urine Negative (Negative); Nitrite,Urine Negative (Negative); PH, Urine 5.5 (5.0-8.0); Protein,Urine Trace (Negative); Specific Gravity,Urine 1.019 (1.001-1.035); Urobilinogen,Urine <2.0 mg/dL (<2.0)
--- NOTE | 2021-09-05 13:20 | XR ---
EXAMINATION TYPE: XR chest 2V DATE OF EXAM: 09/05/2021 COMPARISON: Chest x-ray August 03, 2019. CT chest March 26, 2021 HISTORY: Syncope and weakness. TECHNIQUE: Frontal and lateral views of the chest are obtained. FINDINGS: There is background chronic emphysematous change with new left basilar opacity. Right lung is clear. The cardiac silhouette size is stable and within normal limits. The osseous structures a re intact. IMPRESSION: Chronic emphysematous change with new patchy left basilar acute atelectasis and/or devel oping infiltrate.
--- NOTE | 2021-09-05 13:27 | ED ---
General Adult HPI - General Chief complaint: Syncope Stated complaint: Syncope Time Seen by Provider: 09/05/21 10:40 Source: patient, EMS, RN notes reviewed Mode of arrival: EMS Limitations: no limitations - History of Present Illness Initial comments: This a 75-year-old male presents emergency Department with chief complaint of a syncopal episode. Patient states he has not felt well last few days as he recently has been diagnosed with COVID-19. He states not been eating and drinking as much usual. He sat down have breakfast states he passed out. Patient has been went to chest pain or shortness breath currently. Patient states blood pressure was lower this morning result of his blood pressure medication. Patient did receive IV fluids prior arrival states it really helped. He denies any palpitations no vomiting no diarrhea. No focal weakness - Related Data Home Medications Medication Instructions Recorded Confirmed Aspirin EC [Ecotrin Low Dose] 81 mg PO DAILY 08/03/19 09/05/21 Betamethasone Dipropionate 1 applic TOPICAL BID PRN 08/03/19 09/05/21 [Diprolene AF 0.05% Cream] Budesonide/Formoterol Fumarate 2 puff INHALATION RT-BID 08/03/19 09/05/21 [Symbicort 160-4.5 Mcg Inhaler] EPINEPHrine (Auto Inject) [Epipen] 0.3 mg IM ONCE PRN 08/03/19 09/05/21 Ipratropium-Albuterol Nebulize 3 ml INHALATION RT-QID PRN 08/03/19 09/05/21 [Duoneb 0.5 mg-3 mg/3 ml Soln] Olmesartan Medoxomil [Benicar] 40 mg PO DAILY 08/03/19 09/05/21 Rosuvastatin [Crestor] 10 mg PO DAILY 08/03/19 09/05/21 Ubidecarenone [Co Q-10] 400 mg PO DAILY 08/03/19 09/05/21 metFORMIN HCL [Glucophage] 500 mg PO AC-BID 08/03/19 09/05/21 Dutasteride/Tamsulosin HCl [Elizabeth 1 cap PO DAILY 04/22/20 09/05/21 0.5-0.4 mg Capsule] Multivit-Min/FA/Lycopen/Lutein 1 tab PO DAILY 04/22/20 09/05/21 [Centrum Silver Men Tablet] Natural Vitamin K2 As Mk-7 100 1 cap PO DAILY 04/22/20 09/05/21 Potassium Gluconate [Potassium 99 mg PO AC-BRKFST 04/22/20 09/05/21 Gluconate ER] Turmeric 1950mg 1 cap PO DAILY 04/22/20 09/05/21 amLODIPine [Norvasc] 10 mg PO HS 04/22/20 09/05/21 hydroCHLOROthiazide [Hydrodiuril] 12.5 mg PO DAILY 04/22/20 09/05/21 Albuterol Sulfate [Proair Hfa] 1 puff INHALATION RT-Q4H PRN 09/05/21 09/05/21 Ascorbic Acid [Vitamin C with Haritha 1,500 mg PO DAILY 09/05/21 09/05/21 Hips] Clopidogrel [Plavix] 75 mg PO DAILY 09/05/21 09/05/21 Ferrous Sulfate [Feosol] 325 mg PO DAILY 09/05/21 09/05/21 Health Origins 1 cap PO DAILY 09/05/21 09/05/21 Metoprolol Succinate [Toprol XL] 25 mg PO DAILY 09/05/21 09/05/21 Psyllium Husk (with Sugar) 10 ml PO DAILY 09/05/21 09/05/21 [Metamucil Powder] Selenium 200 mcg PO DAILY 09/05/21 09/05/21 Zinc 100 mg PO DAILY 09/05/21 09/05/21 Zolpidem [Ambien] 5 mg PO HS PRN 09/05/21 09/05/21 Allergies Allergy/AdvReac Type Severity Reaction Status Date / Time adhesive tape Allergy Rash/Hives Verified 09/05/21 11:07 fire ant Allergy Anaphylaxis Verified 09/05/21 11:07 Review of Systems ROS Statement: Those systems with pertinent positive or pertinent negative responses have been documented in the HPI. ROS Other: All systems not noted in ROS Statement are negative. Past Medical History Past Medical History: COPD, Hyperlipidemia, Hypertension, Prostate Disorder Additional Past Medical History / Comment(s): headache History of Any Multi-Drug Resistant Organisms: None Reported Past Surgical History: Back Surgery, Orthopedic Surgery Additional Past Surgical History / Comment(s): lymph node, rectal fistula, sinus surgery, L knee, Rshoulder, R knee, B carpal tunnel, Hemmorhoidectomy Past Psychological History: No Psychological Hx Reported Smoking Status: Former smoker Past Alcohol Use History: Occasional Past Drug Use History: None Reported - Past Family History Mother Family Medical History: No Reported History (Mother at age of 50 from unknown cause) Father Family Medical History: No Reported History (Father at age of 85 from unknown cause.) Brother(s) Family Medical History: No Reported History (Patient has one brother no major medical problems.) Sister(s) Family Medical History: Diabetes Mellitus, Thyroid Disorder (Patient had one sister who from more of a vehicle accident and had history of diabetes hypothyroidism and obesity.) Daughter(s) Family Medical History: Diabetes Mellitus, Hypertension (Patient has one daughter with diabetes hypertension and also arthritis per) Son(s) Family Medical History: No Reported History (Patient has one son no major medical problems.) General Exam Limitations: no limitations General appearance: alert, in no apparent distress Head exam: Present: atraumatic, normocephalic, normal inspection Eye exam: Present: normal appearance, PERRL, EOMI. Absent: scleral icterus, conjunctival injection, periorbital swelling ENT exam: Present: normal exam, normal oropharynx, mucous membranes moist Neck exam: Present: normal inspection, full ROM. Absent: tenderness, meningismus, lymphadenopathy Respiratory exam: Present: normal lung sounds bilaterally. Absent: respiratory distress, wheezes, rales, rhonchi, stridor Cardiovascular Exam: Present: regular rate, normal rhythm, normal heart sounds. Absent: systolic murmur, diastolic murmur, rubs, gallop, clicks Course Vital Signs 09/05/21 10:58 Temperature 99.0 F Pulse Rate 77 Respiratory 18 Rate Blood Pressure 103/59 O2 Sat by Pulse 98 Oximetry Medical Decision Making - Medical Decision Making This a 75-year-old presented for syncopal episode. Patient has positive orthostatics. Patient was given a liter and half of fluids. He states he feels greatly improved. Patient did have mild dehydration. Patient is currently positive for COVID-19. No complaints of chest pain or shortness of breath. Patient will be discharged in stable condition with close follow-up we did discu ss increasing fluids. - Lab Data Result diagrams: 09/05/21 11:44 09/05/21 11:44 Lab Results 09/05/21 09/05/21 09/05/21 Range/Units 11:44 11:44 11:44 WBC 6.1 (3.8-10.6) k/uL RBC 3.32 L (4.30-5.90) m/uL Hgb 10.4 L (13.0-17.5) gm/dL Hct 29.5 L (39.0-53.0) % MCV 88.8 (80.0-100.0) fL MCH 31.1 (25.0-35.0) pg MCHC 35.1 (31.0-37.0) g/dL RDW 13.0 (11.5-15.5) % Plt Count 234 (150-450) k/uL MPV 7.7 Neutrophils % 82 % Lymphocytes % 8 % Monocytes % 9 % Eosinophils % 0 % Basophils % 0 % Neutrophils # 5.0 (1.3-7.7) k/uL Lymphocytes # 0.5 L (1.0-4.8) k/uL Monocytes # 0.5 (0-1.0) k/uL Eosinophils # 0.0 (0-0.7) k/uL Basophils # 0.0 (0-0.2) k/uL Sodium 129 L (137-145) mmol/L Potassium 4.0 (3.5-5.1) mmol/L Chloride 100 (98-107) mmol/L Carbon Dioxide 19 L (22-30) mmol/L Anion Gap 10 mmol/L BUN 43 H (9-20) mg/dL Creatinine 1.44 H (0.66-1.25) mg/dL Est GFR (CKD-EPI)AfAm 54 (>60 ml/min/1.73 sqM) Est GFR (CKD-EPI)NonAf 47 (>60 ml/min/1.73 sqM) Glucose 122 H (74-99) mg/dL Calcium 8.4 (8.4-10.2) mg/dL Total Bilirubin 0.2 (0.2-1.3) mg/dL AST 38 (17-59) U/L ALT 34 (4-49) U/L Alkaline Phosphatase 62 (38-126) U/L Troponin I (0.000-0.034) ng/mL Total Protein 6.0 L (6.3-8.2) g/dL Albumin 3.4 L (3.5-5.0) g/dL Urine Color Yellow Urine Appearance Clear (Clear) Urine pH 5.5 (5.0-8.0) Ur Specific [place] 1.019 (1.001-1.035) Urine Protein Trace H (Negative) Urine Glucose (UA) Negative (Negative) Urine Ketones Negative (Negative) Urine Blood Negative (Negative) Urine Nitrite Negative (Negative) Urine Bilirubin Negative (Negative) Urine Urobilinogen <2.0 (<2.0) mg/dL Ur Leukocyte Esterase Negative (Negative) 09/05/21 Range/Units 11:44 WBC (3.8-10.6) k/uL RBC (4.30-5.90) m/uL Hgb (13.0-17.5) gm/dL Hct (39.0-53.0) % MCV (80.0-100.0) fL MCH (25.0-35.0) pg MCHC (31.0-37.0) g/dL RDW (11.5-15.5) % Plt Count (150-450) k/uL MPV Neutrophils % % Lymphocytes % % Monocytes % % Eosinophils % % Basophils % % Neutrophils # (1.3-7.7) k/uL Lymphocytes # (1.0-4.8) k/uL Monocytes # (0-1.0) k/uL Eosinophils # (0-0.7) k/uL Basophils # (0-0.2) k/uL Sodium (137-145) mmol/L Potassium (3.5-5.1) mmol/L Chloride (98-107) mmol/L Carbon Dioxide (22-30) mmol/L Anion Gap mmol/L BUN (9-20) mg/dL Creatinine (0.66-1.25) mg/dL Est GFR (CKD-EPI)AfAm (>60 ml/min/1.73 sqM) Est GFR (CKD-EPI)NonAf (>60 ml/min/1.73 sqM) Glucose (74-99) mg/dL Calcium (8.4-10.2) mg/dL Total Bilirubin (0.2-1.3) mg/dL AST (17-59) U/L ALT (4-49) U/L Alkaline Phosphatase (38-126) U/L Troponin I <0.012 (0.000-0.034) ng/mL Total Protein (6.3-8.2) g/dL Albumin (3.5-5.0) g/dL Urine Color Urine Appearance (Clear) Urine pH (5.0-8.0) Ur Specific [place] (1.001-1.035) Urine Protein (Negative) Urine Glucose (UA) (Negative) Urine Ketones (Negative) Urine Blood (Negative) Urine Nitrite (Negative) Urine Bilirubin (Negative) Urine Urobilinogen (<2.0) mg/dL Ur Leukocyte Esterase (Negative) Disposition Clinical Impression: COVID, Dehydration, Episode of syncope Disposition: HOME SELF-CARE Condition: Stable Instructions (If sedation given, give patient instructions): Syncope (ED) Additional Instructions: Please return to the Emergency Department if symptoms worsen or any other concerns. Is patient prescribed a controlled substance at d/c from ED?: No Referrals: Roseline Bradley MD [Primary Care Provider] - 1-2 days Time of Disposition: 13:27
[2021-09-05 13:47] VITALS: BP 101/69; TEMP 98
== END 2021-09-05 13:50 | disposition home or self-care (01) ==
LOC: EC 10:38
DX: U07.1 COVID-19 (principal); E86.0 Dehydration; R55 Syncope and collapse; I10 Essential (primary) hypertension; J44.9 Chronic obstructive pulmonary disease, unspecified; E78.5 Hyperlipidemia, unspecified; Z87.891 Personal history of nicotine dependence; Z79.84 Long term (current) use of oral hypoglycemic drugs; Z79.51 Long term (current) use of inhaled steroids; Z79.82 Long term (current) use of aspirin; Z79.899 Other long term (current) drug therapy
CPT/HCPCS: 36415; 71046; 80053; 81003; 84484; 85025; 93005; 96360; 99284

== ENCOUNTER → 2022-09-23 | Day surgery (SDC) | payer MEDICARE ==
[2022-08-21 12:16] VITALS: BMI 29.4
[~2022-09-23] MED LIST: SIMETHICONE 40 MG/0.6 ML DROPS 2,000 MG/30 ML BOTTLE PO ONE
[2022-09-23 07:21] VITALS: BP 153/81; PULSE 66; RESP 16; TEMP 97.4
== END ==
LOC: ORWHC2ENDO 06:20
PROVIDERS: ATTEND Internal Medicine Gastroenterology
DX: D50.0 Iron deficiency anemia secondary to blood loss (chronic) (principal)
CPT/HCPCS: 91110

== ENCOUNTER 2023-03-13 17:50 | Emergency (ER) | payer MEDICARE ==
[2023-03-13 18:03] VITALS: RESP 18; TEMP 97.6
[2023-03-13] MEDS ORDERED: MORPHINE SULFATE 4 MG/ML SYRINGE IM STA (18:18)
[2023-03-13] MEDS ORDERED: ACETAMINOPHEN TAB 500 MG TAB PO STA (18:18)
[2023-03-13] MEDS ORDERED: ACET/COD 300 MG/30 MG STARTER PACK 6 TAB BTL PO STA (18:18)
[2023-03-13] MEDS ORDERED: IBUPROFEN 600 MG TAB PO STA (18:18)
[2023-03-13] MEDS ORDERED: IBUPROFEN 600 MG STARTER PACK 4 TAB BTL PO STA (18:18)
--- NOTE | 2023-03-13 18:31 | XR ---
EXAMINATION TYPE: XR chest 1V DATE OF EXAM: 03/13/2023 6:27 PM COMPARISON: Chest radiographs from 09/05/2021 TECHNIQUE: XR chest 1V Frontal view of the chest. CLINICAL INDICATION:Male, 77 years old with history of FALL; FINDINGS: Lungs/Pleura: There is no evidence of pleural effusion, focal consolidation, or pneumothorax. Chroni c senescent parenchymal change. Hyperinflation. Pulmonary vascularity: Unremarkable. Heart/mediastinum: Cardiomediastinal silhouette is unremarkable. Musculoskeletal: No acute osseous pathology. Bilateral shoulder arthropathy. IMPRESSION: Chronic emphysematous change without evidence for acute process.
--- NOTE | 2023-03-13 18:34 | XR ---
EXAMINATION TYPE: XR foot complete LT DATE OF EXAM: 03/13/2023 6:27 PM INDICATION: Patient age:Male; 77 years old; Reason for study: FALL; [facility]. COMPARISON: None TECHNIQUE: The left foot was examined in the AP, oblique, and lateral projections. FINDINGS: Acute appearing minimally displaced fracture of the midshaft of the fifth metatarsal. No dislocation. Severe degenerative changes of the first MTP joint. Minimal soft tissue swelling involving the late ral forefoot. No dislocation. IMPRESSION: 1. Acute minimally displaced fracture of the midshaft of the fifth metatarsal. 2. Severe degenerative changes of the first MTP joint.
--- NOTE | 2023-03-13 18:34 | XR ---
EXAMINATION TYPE: XR elbow complete LT DATE OF EXAM: 03/13/2023 6:27 PM INDICATION: Patient age:Male; 77 years old; Reason for study: FALL; [facility]. COMPARISON: None TECHNIQUE: The left elbow was examined in AP, lateral, and oblique projections. FINDINGS: No evidence of any acute osseous pathology, joint dislocation, or soft tissue swelling is n oted. No evidence of joint effusion is present. Enthesophyte at the insertion of the triceps tendon. IMPRESSION: No evidence of acute fracture.
--- NOTE | 2023-03-13 18:43 | XR ---
EXAMINATION TYPE: XR Hip LT and AP Pelvis DATE OF EXAM: 03/13/2023 6:33 PM INDICATION: Patient age:Male; 77 years old; Reason for study: FALL; [facility]. COMPARISON: CT chest abdomen pelvis 03/26/2021 TECHNIQUE: The left hip was examined in the frontal and lateral projections and a AP pelvis. FINDINGS: No dislocation. No acute fracture. Mild bilateral medial joint space narrowed with acetabul ar sclerosis and marginal osteophytosis of both hips. 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 No soft tissue swelling. IMPRESSION: 1. No acute osseous pathology. 2. Mild osteoarthritic changes of both hips.
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
[2023-03-13 20:18] VITALS: BP 134/82; PULSE 60
[2023-03-13] MEDS ORDERED: hydrOXYzine HCL 25 MG TAB PO STA (20:30)
== END 2023-03-13 20:18 | disposition home or self-care (01) ==
LOC: EC 17:50
DX: S92.352A Displaced fracture of fifth metatarsal bone, left foot, initial encounter for closed fracture (principal); E11.9 Type 2 diabetes mellitus without complications; I10 Essential (primary) hypertension; J44.9 Chronic obstructive pulmonary disease, unspecified; E78.5 Hyperlipidemia, unspecified; Z79.84 Long term (current) use of oral hypoglycemic drugs; Z79.82 Long term (current) use of aspirin; Z79.51 Long term (current) use of inhaled steroids; Z79.02 Long term (current) use of antithrombotics/antiplatelets; Z86.73 Personal history of transient ischemic attack (TIA), and cerebral infarction without residual deficits; Z87.891 Personal history of nicotine dependence; V19.9XXA Pedal cyclist (driver) (passenger) injured in unspecified traffic accident, initial encounter; Y92.009 Unspecified place in unspecified non-institutional (private) residence as the place of occurrence of the external cause; Y93.55 Activity, bike riding; Z91.09 Other allergy status, other than to drugs and biological substances
CPT/HCPCS: 73502; 73080; 73630; 71045; 99284; 96372; J2270

== ENCOUNTER 2024-06-29 09:32 | Emergency (ER) | payer MEDICARE ==
[2024-06-29 09:37] VITALS: RESP 16
[2024-06-29 10:02] LABS: Basophils % (A) 1 %; Eosinophils # (A) 0.2 k/uL (0-0.7); Eosinophils % (A) 3 %; HCT 37.4 % (39.0-53.0); HGB 12.6 gm/dL (13.0-17.5); Lymphocytes # (A) 1.2 k/uL (1.0-4.8); Lymphocytes % (A) 22 %; MCH 30.3 pg (25.0-35.0); MCHC 33.7 g/dL (31.0-37.0); MCV 89.8 fL (80.0-100.0); Monocytes # (A) 0.4 k/uL (0-1.0); Monocytes % (A) 8 %; Neutrophils # (A) 3.4 k/uL (1.3-7.7); Neutrophils % (A) 64 %; Platelet Count 228 k/uL (150-450); RBC 4.17 m/uL (4.30-5.90); RDW 13.6 % (11.5-15.5); WBC 5.3 k/uL (3.8-10.6)
[2024-06-29 10:17] LABS: ALT 27 U/L (4-49); AST 30 U/L (17-59); African American GFR (CKD) 67 (>60 ml/min/1.73 sqM); Alkaline Phosphatase 82 U/L (38-126); Anion Gap 14 mmol/L; Blood Urea Nitrogen 29 mg/dL (9-20); Calcium 9.9 mg/dL (8.4-10.2); Carbon Dioxide 22 mmol/L (22-30); Chloride 100 mmol/L (98-107); Glucose 138 mg/dL (74-99); Magnesium 1.9 mg/dL (1.6-2.3); Non-African American GFR(CKD) 58 (>60 ml/min/1.73 sqM); Potassium 4.4 mmol/L (3.5-5.1); Sodium 136 mmol/L (137-145); Total Bilirubin 0.6 mg/dL (0.2-1.3); Total Protein 7.5 g/dL (6.3-8.2)
[2024-06-29 10:19] LABS: INR 0.9 (<1.2)
[2024-06-29 10:20] LABS: Partial Thromboplastin Time 27.9 sec (22.0-30.0); Prothrombin Time 10.3 sec (10.0-12.5)
[2024-06-29] MEDS: KETOROLAC 15 MG/ML 1 ML VIAL IVP STA (10:35)
--- NOTE | 2024-06-29 10:43 | XR ---
EXAMINATION TYPE: XR chest 2V DATE OF EXAM: 06/29/2024 COMPARISON: 03/13/2023 INDICATION: Chest pain TECHNIQUE: Frontal and lateral views of the chest are obtained. FINDINGS: The heart size is normal. The pulmonary vasculature is normal. The lungs are clear. Focal eventration of the right diaphragm. IMPRESSION: 1. No acute pulmonary process. [facility], , 06/29/2024 10:41 AM
--- NOTE | 2024-06-29 13:21 | ED ---
General Adult HPI - General Chief complaint: Chest Pain Stated complaint: chest pain Time Seen by Provider: 06/29/24 10:00 Source: patient, RN notes reviewed, old records reviewed Mode of arrival: wheelchair Limitations: no limitations - History of Present Illness Initial comments: Is a 78-year-old male who presents to the emergency department complaining of left-sided chest pain. Patient states that sharp in nature and reproducible with pressure. Patient states started 5 days ago and has been ongoing for 5 days. Patient denies shortness of breath or difficulty breathing. Patient denies any fever. Patient has any cough. Patient denies any radiation of the pain. Patient [place] any diaphoretic episode. Patient has any swelling in the legs or calf tenderness. - Related Data Home Medications Medication Instructions Recorded Confirmed Aspirin EC [Ecotrin Low Dose] 81 mg PO DAILY 08/03/19 06/29/24 Betamethasone Dipropionate 1 applic TOPICAL BID PRN 08/03/19 06/29/24 [Betamethasone Dipropionate 0.05% Cream] EPINEPHrine (Auto Inject) [Epipen] 0.3 mg IM ONCE PRN 08/03/19 06/29/24 Olmesartan Medoxomil [Benicar] 40 mg PO DAILY 08/03/19 06/29/24 Rosuvastatin [Crestor] 10 mg PO DAILY 08/03/19 06/29/24 Ubidecarenone [Co Q-10] 400 mg PO DAILY 08/03/19 06/29/24 metFORMIN HCL [Glucophage] 500 mg PO BID 08/03/19 06/29/24 Dutasteride/Tamsulosin HCl [Elizabeth 1 cap PO DAILY 04/22/20 06/29/24 0.5-0.4 mg Capsule] Mv-Min/Folic/K1/Lycopen/Lutein 1 tab PO DAILY 04/22/20 06/29/24 [Centrum Silver Men Tablet] Natural Vitamin K2 As Mk-7 100 1 cap PO DAILY 04/22/20 06/29/24 amLODIPine [Norvasc] 10 mg PO HS 04/22/20 06/29/24 Albuterol Sulfate [Proair Hfa] 1 puff INHALATION RT-Q4H PRN 09/05/21 06/29/24 Ascorbic Acid [Vitamin C with Haritha 1,000 mg PO DAILY 09/05/21 06/29/24 Hips] Ferrous Sulfate [Feosol] 325 mg PO DAILY 09/05/21 06/29/24 Metoprolol Succinate [Toprol XL] 25 mg PO HS 09/05/21 06/29/24 Psyllium Husk (with Sugar) 2 scoop PO DAILY 09/05/21 06/29/24 [Metamucil Powder] Selenium 200 mcg PO DAILY 09/05/21 06/29/24 Zolpidem [Ambien] 5 mg PO HS PRN 09/05/21 06/29/24 Omeprazole 20 mg PO DAILY PRN 08/19/22 06/29/24 Cetirizine HCl [Zyrtec] 10 mg PO HS 06/29/24 06/29/24 Cholecalciferol [Vitamin D3 (125 250 mcg PO DAILY 06/29/24 06/29/24 Mcg = 5000 Iu)] Clotrimazole/Betameth Cream 1 applic TOPICAL BID PRN 06/29/24 06/29/24 [Lotrisone] Fluorometholone 0.1% Ophth Lizzie 1 drop RIGHT EYE TID 06/29/24 06/29/24 [Fml] Fluticasone/Umeclidin/Vilanter 1 puff INHALATION RT-DAILY 06/29/24 06/29/24 [Trelegy Ellipta 100-62.5-25] Lactobacillus Acidophilus 1 cap PO DAILY 06/29/24 06/29/24 [Acidophilus Probiotic] Lugol's Solution Of Iodine 2% 3 drops PO MOWEFR 06/29/24 06/29/24 Magnesium Oxide [Magnesium] 500 mg PO DAILY 06/29/24 06/29/24 Potassium Citrate 99 mg PO DAILY 06/29/24 06/29/24 Thiamine [Vitamin B-1] 300 mg PO DAILY 06/29/24 06/29/24 Triamcinolone 0.1% Cream [Kenalog 1 applicatio TOPICAL BID PRN 06/29/24 06/29/24 0.1% Cream] Turmeric Curcumin 1,950mg 1,950 mg PO DAILY 06/29/24 06/29/24 Zinc Picolinate 100mg 100 mg PO DAILY 06/29/24 06/29/24 methocarbamoL [Robaxin-750] 750 mg PO Q8H PRN 06/29/24 06/29/24 Previous Rx's Medication Instructions Recorded Ketorolac [Toradol] 10 mg PO Q8HR #15 tab 06/29/24 Allergies Allergy/AdvReac Type Severity Reaction Status Date / Time adhesive tape Allergy Rash/Hives Verified 06/29/24 12:37 fire ant Allergy Anaphylaxis Verified 06/29/24 12:37 Review of Systems ROS Statement: Those systems with pertinent positive or pertinent negative responses have been documented in the HPI. ROS Other: All systems not noted in ROS Statement are negative. Past Medical History Past Medical History: COPD, CVA/TIA, Diabetes Mellitus, Hyperlipidemia, Hypertension, Prostate Disorder Additional Past Medical History / Comment(s): Headache, hiatal hernia, hx TIA 2019, slurred speech, vasovagal syncope. History of Any Multi-Drug Resistant Organisms: None Reported Past Surgical History: Back Surgery, Orthopedic Surgery Additional Past Surgical History / Comment(s): Lymph node, rectal fistula, sinus surgery, left knee, right shoulder, right knee surgery, bilateral carpal tunnel, hemmorhoidectomy, lasik eye surgery. Past Anesthesia/Blood Transfusion Reactions: No Reported Reaction Past Psychological History: No Psychological Hx Reported Smoking Status: Former smoker Past Alcohol Use History: Occasional Past Drug Use History: None Reported - Past Family History Mother Family Medical History: No Reported History Father Family Medical History: No Reported History Brother(s) Family Medical History: No Reported History Sister(s) Family Medical History: Diabetes Mellitus, Thyroid Disorder Daughter(s) Family Medical History: Diabetes Mellitus, Hypertension Son(s) Family Medical History: No Reported History General Exam - General Exam Comments Initial Comments: GENERAL: Patient is well-developed and well-nourished. Patient is nontoxic and well- hydrated and is in mild distress. ENT: Neck is soft and supple. No significant lymphadenopathy is noted. Oropharynx is clear. Moist mucous membranes. Neck has full range of motion without eliciting any pain. EYES: The sclera were anicteric and conjunctiva were pink and moist. Extraocular movements were intact and pupils were equal round and reactive to light. Eyelids were unremarkable. PULMONARY: Unlabored respirations. Good breath sounds bilaterally. No audible rales rhonchi or wheezing was noted. CARDIOVASCULAR: There is a regular rate and rhythm without any murmurs gallops or rubs. Chest pain is reproducible. ABDOMEN: Soft and nontender with normal bowel sounds. SKIN: Skin is clear with no lesions or rashes and otherwise unremarkable. NEUROLOGIC: Patient is alert and oriented x3. Cranial nerves II through XII are grossly intact. Motor and sensory are also intact. Normal speech, volume and content. Symmetrical smile. MUSCULOSKELETAL: Normal extremities with adequate strength and full range of motion. LYMPHATICS: No significant lymphadenopathy is noted PSYCHIATRIC: Normal psychiatric evaluation. Limitations: no limitations Course Vital Signs 06/29/24 06/29/24 06/29/24 09:34 12:41 13:34 Temperature 97.4 F L 97.5 F L 98 F Pulse Rate 72 63 62 Respiratory 16 16 Rate Blood Pressure 159/78 120/76 143/85 O2 Sat by Pulse 99 96 99 Oximetry Medical Decision Making - Medical Decision Making EKG is interpreted by myself read EKG shows a sinus rhythm at 73 bpm TN 202 QRS is 89 QT interval 380 QTc is 405. Patient's EKG shows no ST segment elevation or depression. Was pt. sent in by a medical professional or institution (FILOMENA Garcia, DIRECTOR TECHNICAL, urgent care, hospital, or penitentiary...) When possible be specific @ -No Did you speak to anyone other than the patient for history (EMS, parent, family, police, friend...)? What history was obtained from this source @ -No Did you review nursing and triage notes (agree or disagree)? Why? @ -I reviewed and agree with nursing and triage notes Were old charts reviewed (outside hosp., previous admission, EMS record, old EKG, old radiological studies, urgent care reports/EKG's, penitentiary records)? Report findings @ -No old charts were reviewed Differential Diagnosis? @ -Differential Chest Pain: Stable Angina, Unstable Angina, STEMI, NSTEMI Aortic Dissection, Pneumothorax, Musculoskeletal, Esophageal Spasm GERD, Cholecystitis, Pancreatitis, Zoster, this is not meant to be an all-inclusive list. EKG interpreted by me (3pts min.). @ -As above X-rays interpreted by me (1pt min.). @ -Chest x-ray shows no acute abnormality CT interpreted by me (1pt min.). @ -None done U/S interpreted by me (1pt. min.). @ -None done What testing was considered but not performed or refused? (CT, X-rays, U/S, labs)? Why? @ -None What meds were considered but not given or refused? Why? @ -None Did you discuss the management of the patient with other professionals (professionals i.e. , PA, DIRECTOR TECHNICAL, lab, RT, psych nurse, social media specialist, dolphin trainer, teacher, canine enforcement officer, caseworker protective services)? Give summary @ -No Was smoking cessation discussed for >3mins.? @ -No Was critical care preformed (if so, how long)? @ -No Were there social determinants of health that impacted care today? How? (Homelessness, low income, unemployed, alcoholism, drug addiction, transportation, low edu. Level, literacy, decrease access to med. care, [facility], rehab)? @ -No Was there de-escalation of care discussed even if they declined (Discuss DNR or withdrawal of care, Hospice)? DNR status @ -No What co-morbidities impacted this encounter? (DM, HTN, Smoking, COPD, CAD, Cancer, CVA, ARF, Chemo, Hep., AIDS, mental health diagnosis, sleep apnea, morbid obesity)? @ -None Was patient admitted / discharged? Hospital course, mention meds given and route, prescriptions, significant lab abnormalities, going to OR and other pertinent info. @ -Patient's lab work was all normal. Patient was given Toradol he stated it took his pain away completely. Undiagnosed new problem with uncertain prognosis? @ -No Drug Therapy requiring intensive monitoring for toxicity (Heparin, Nitro, Insulin, Cardizem)? @ -No Were any procedures done? @ -No Diagnosis/symptom? @ -Musculoskeletal chest pain Acute, or Chronic, or Acute on Chronic? @ -Acute Uncomplicated (without systemic symptoms) or Complicated (systemic symptoms)? @ -Complicated Side effects of treatment? @ -No Exacerbation, Progression, or Severe Exacerbation? @ -No Poses a threat to life or bodily function? How? (Chest pain, [place], NH, pneumonia, PE, COPD, DKA, ARF, appy, cholecystitis, CVA, Diverticulitis, Homicidal, Suicidal, threat to staff... and all critical care pts) @ -No - Lab Data Result diagrams: 06/29/24 09:52 06/29/24 09:52 Lab Results 06/29/24 06/29/24 06/29/24 Range/Units 09:52 09:52 09:52 WBC 5.3 (3.8-10.6) k/uL RBC 4.17 L (4.30-5.90) m/uL Hgb 12.6 L (13.0-17.5) gm/dL Hct 37.4 L (39.0-53.0) % MCV 89.8 (80.0-100.0) fL MCH 30.3 (25.0-35.0) pg MCHC 33.7 (31.0-37.0) g/dL RDW 13.6 (11.5-15.5) % Plt Count 228 (150-450) k/uL MPV 8.0 Neutrophils % 64 % Lymphocytes % 22 % Monocytes % 8 % Eosinophils % 3 % Basophils % 1 % Neutrophils # 3.4 (1.3-7.7) k/uL Lymphocytes # 1.2 (1.0-4.8) k/uL Monocytes # 0.4 (0-1.0) k/uL Eosinophils # 0.2 (0-0.7) k/uL Basophils # 0.0 (0-0.2) k/uL PT 10.3 (10.0-12.5) sec INR 0.9 (<1.2) APTT 27.9 (22.0-30.0) sec D-Dimer (<0.60) mg/L FEU Sodium 136 L (137-145) mmol/L Potassium 4.4 (3.5-5.1) mmol/L Chloride 100 (98-107) mmol/L Carbon Dioxide 22 (22-30) mmol/L Anion Gap 14 mmol/L BUN 29 H (9-20) mg/dL Creatinine 1.19 (0.66-1.25) mg/dL Est GFR (CKD-EPI)AfAm 67 (>60 ml/min/1.73 sqM) Est GFR (CKD-EPI)NonAf 58 (>60 ml/min/1.73 sqM) Glucose 138 H (74-99) mg/dL Calcium 9.9 (8.4-10.2) mg/dL Magnesium 1.9 (1.6-2.3) mg/dL Total Bilirubin 0.6 (0.2-1.3) mg/dL AST 30 (17-59) U/L ALT 27 (4-49) U/L Alkaline Phosphatase 82 (38-126) U/L Troponin I (0.000-0.034) ng/mL Total Protein 7.5 (6.3-8.2) g/dL Albumin 5.0 (3.5-5.0) g/dL 06/29/24 06/29/24 Range/Units 09:52 12:00 WBC (3.8-10.6) k/uL RBC (4.30-5.90) m/uL Hgb (13.0-17.5) gm/dL Hct (39.0-53.0) % MCV (80.0-100.0) fL MCH (25.0-35.0) pg MCHC (31.0-37.0) g/dL RDW (11.5-15.5) % Plt Count (150-450) k/uL MPV Neutrophils % % Lymphocytes % % Monocytes % % Eosinophils % % Basophils % % Neutrophils # (1.3-7.7) k/uL Lymphocytes # (1.0-4.8) k/uL Monocytes # (0-1.0) k/uL Eosinophils # (0-0.7) k/uL Basophils # (0-0.2) k/uL PT (10.0-12.5) sec INR (<1.2) APTT (22.0-30.0) sec D-Dimer 0.37 (<0.60) mg/L FEU Sodium (137-145) mmol/L Potassium (3.5-5.1) mmol/L Chloride (98-107) mmol/L Carbon Dioxide (22-30) mmol/L Anion Gap mmol/L BUN (9-20) mg/dL Creatinine (0.66-1.25) mg/dL Est GFR (CKD-EPI)AfAm (>60 ml/min/1.73 sqM) Est GFR (CKD-EPI)NonAf (>60 ml/min/1.73 sqM) Glucose (74-99) mg/dL Calcium (8.4-10.2) mg/dL Magnesium (1.6-2.3) mg/dL Total Bilirubin (0.2-1.3) mg/dL AST (17-59) U/L ALT (4-49) U/L Alkaline Phosphatase (38-126) U/L Troponin I <0.012 (0.000-0.034) ng/mL Total Protein (6.3-8.2) g/dL Albumin (3.5-5.0) g/dL Disposition Clinical Impression: Chest wall pain Disposition: HOME SELF-CARE Condition: Good Instructions (If sedation given, give patient instructions): Chest Pain (ED) Prescriptions: Ketorolac [Toradol] 10 mg PO Q8HR #15 tab Is patient prescribed a controlled substance at d/c from ED?: No Referrals: Roseline Bradley MD [Primary Care Provider] - 1-2 days Time of Disposition: 13:21
[2024-06-29 13:36] VITALS: BP 143/85; PULSE 62; TEMP 98
== END 2024-06-29 13:36 | disposition home or self-care (01) ==
LOC: EC 09:32
CPT/HCPCS: 36415; 71046; 80053; 83735; 84484; 85025; 85379; 85610; 85730; 93005; 96374; 99285

== ENCOUNTER → 2024-11-15 | Outpatient (CLI) | payer MEDICARE ==
[2024-11-15 15:58] VITALS: BP 165/86; PULSE 72; RESP 16; TEMP 97.3
--- NOTE | 2024-11-15 16:44 | P.SLEEP ---
History of Present Illness H&P Date: 11/15/24 This is a 78-year-old male patient coming in today due to concerns of sleep apnea. The patient has been suffering of sleep fragmentation and the patient has prostatism/BPH and the patient has excessive nocturia and he has to wake up at least 3-4 times in the middle of the night for urination purposes. For now, the patient is going to bed at around 10:30 PM and is getting up to bed at around 7:00 in the morning. The has noted some occasional snoring. No witnessed apneas. However, the patient has been also also to be fatigued and somewhat sleepy during the day as he can fall asleep and take naps at any time. His current Ashley score is at 9. The patient has history of grinding of the teeth and the patient wears a bite guard. No sleepwalking. No sleep talking. No nighttime chest pain or shortness of breath or heartburn. No anxiety or panic attacks. No sleep paralysis. No hallucinations. No cataplexy. No night terrors. No excessive utilization of caffeinated beverages or alcohol. 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 No personal history of obstructive sleep apnea. No other cardiovascular disease. The patient is scheduled to undergo a TURP for BPH in few weeks time. Review of Systems Constitutional: Reports daytime sleepiness, Reports fatigue Eyes: denies as per HPI, denies blurred vision, denies bulging eye, denies decreased vision, denies diplopia, denies discharge, denies dry eye, denies irritation, denies itching, denies pain, denies photophobia, denies loss of peripheral vision, denies loss of vision, denies tunnel vision/blind spots Ears: deny: decreased hearing, ear discharge, earache, tinnitus Ears, nose, mouth and throat: Reports as per HPI Breasts: absent: as per HPI, gynecomastia Cardiovascular: Reports as per HPI Respiratory: Reports snoring Gastrointestinal: Reports as per HPI Genitourinary: Reports as per HPI, Reports nocturia Musculoskeletal: Reports as per HPI Musculoskeletal: absent: ankle pain, ankle stiffness, ankle swelling, as per HPI , elbow pain, elbow stiffness, elbow swelling, foot pain, foot stiffness, foot swelling, hand pain, hand stiffness, hand swelling, hip pain, hip stiffness, hip swelling, knee pain, knee stiffness, knee swelling, shoulder pain, shoulder stiffness, shoulder swelling, wrist pain, wrist stiffness, wrist swelling Integumentary: Reports as per HPI Neurological: Reports as per HPI Psychiatric: Reports hypersomnia, Reports sleep disturbances Endocrine: Reports as per HPI Hematologic/Lymphatic: Reports as per HPI Allergic/Immunologic: Reports as per HPI Past Medical History Past Medical History: COPD, CVA/TIA, Diabetes Mellitus, Hyperlipidemia, Hypertension, Prostate Disorder Additional Past Medical History / Comment(s): Headache, hiatal hernia, hx TIA 2019, slurred speech, vasovagal syncope. History of Any Multi-Drug Resistant Organisms: None Reported Past Surgical History: Back Surgery, Orthopedic Surgery Additional Past Surgical History / Comment(s): Lymph node, rectal fistula, sinus surgery, left knee, right shoulder, right knee surgery, bilateral carpal tunnel, hemmorhoidectomy, lasik eye surgery. Past Anesthesia/Blood Transfusion Reactions: No Reported Reaction Past Psychological History: No Psychological Hx Reported Smoking Status: Former smoker Past Alcohol Use History: Occasional Past Drug Use History: None Reported - Past Family History Mother Family Medical History: No Reported History, Hyperlipidemia, Hypertension, Osteoarthritis (OA) Additional Family Medical History / Comment(s): sinus headaches, snoring Father Family Medical History: No Reported History Additional Family Medical History / Comment(s): snoring, sinus headaches Brother(s) Family Medical History: No Reported History Sister(s) Family Medical History: Diabetes Mellitus, Thyroid Disorder Daughter(s) Family Medical History: Diabetes Mellitus, Hypertension Son(s) Family Medical History: No Reported History Medications and Allergies Home Medications Medication Instructions Recorded Confirmed Type Aspirin EC [Ecotrin Low Dose] 81 mg PO DAILY 08/03/19 11/15/24 History Betamethasone Dipropionate 1 applic TOPICAL BID PRN 08/03/19 11/15/24 History [Betamethasone Dipropionate 0.05% Cream] EPINEPHrine (Auto Inject) [Epipen] 0.3 mg IM ONCE PRN 08/03/19 11/15/24 History Olmesartan Medoxomil [Benicar] 40 mg PO DAILY 08/03/19 11/15/24 History Rosuvastatin [Crestor] 10 mg PO DAILY 08/03/19 11/15/24 History Ubidecarenone [Co Q-10] 400 mg PO DAILY 08/03/19 11/15/24 History metFORMIN HCL [Glucophage] 500 mg PO BID 08/03/19 11/15/24 History Dutasteride/Tamsulosin HCl [Elizabeth 1 cap PO DAILY 04/22/20 11/15/24 History 0.5-0.4 mg Capsule] Mv-Min/Folic/K1/Lycopen/Lutein 1 tab PO DAILY 04/22/20 06/29/24 History [Centrum Silver Men Tablet] Natural Vitamin K2 As Mk-7 100 1 cap PO DAILY 04/22/20 06/29/24 History amLODIPine [Norvasc] 10 mg PO HS 04/22/20 11/15/24 History Albuterol Sulfate [Proair Hfa] 1 puff INHALATION RT-Q4H PRN 09/05/21 11/15/24 History Ascorbic Acid [Vitamin C with Haritha 1,000 mg PO DAILY 09/05/21 06/29/24 History Hips] Ferrous Sulfate [Feosol] 325 mg PO DAILY 09/05/21 11/15/24 History Metoprolol Succinate [Toprol XL] 25 mg PO HS 09/05/21 11/15/24 History Psyllium Husk (with Sugar) 2 scoop PO DAILY 09/05/21 06/29/24 History [Metamucil Powder] Selenium 200 mcg PO DAILY 09/05/21 06/29/24 History Zolpidem [Ambien] 5 mg PO HS PRN 09/05/21 11/15/24 History Omeprazole 20 mg PO DAILY PRN 08/19/22 06/29/24 History Cetirizine HCl [Zyrtec] 10 mg PO HS 06/29/24 11/15/24 History Cholecalciferol [Vitamin D3 (125 250 mcg PO DAILY 06/29/24 06/29/24 History Mcg = 5000 Iu)] Clotrimazole/Betameth Cream 1 applic TOPICAL BID PRN 06/29/24 11/15/24 History [Lotrisone] Fluorometholone 0.1% Ophth Lizzie 1 drop RIGHT EYE TID 06/29/24 06/29/24 History [Fml] Fluticasone/Umeclidin/Vilanter 1 puff INHALATION RT-DAILY 06/29/24 11/15/24 History [Trelegy Ellipta 100-62.5-25] Ketorolac [Toradol] 10 mg PO Q8HR #15 tab 06/29/24 Rx Lactobacillus Acidophilus 1 cap PO DAILY 06/29/24 06/29/24 History [Acidophilus Probiotic] Lugol's Solution Of Iodine 2% 3 drops PO MOWEFR 06/29/24 06/29/24 History Magnesium Oxide [Magnesium] 500 mg PO DAILY 06/29/24 06/29/24 History Potassium Citrate 99 mg PO DAILY 06/29/24 06/29/24 History Thiamine [Vitamin B-1] 300 mg PO DAILY 06/29/24 06/29/24 History Triamcinolone 0.1% Cream [Kenalog 1 applicatio TOPICAL BID PRN 06/29/24 11/15/24 History 0.1% Cream] Turmeric Curcumin 1,950mg 1,950 mg PO DAILY 06/29/24 06/29/24 History Zinc Picolinate 100mg 100 mg PO DAILY 06/29/24 06/29/24 History methocarbamoL [Robaxin-750] 750 mg PO Q8H PRN 06/29/24 11/15/24 History Amoxicillin 500 mg PO DIRECTED 11/15/24 11/15/24 History Tamsulosin [Flomax] 0.5 mg PO DAILY 11/15/24 11/15/24 History Allergies Allergy/AdvReac Type Severity Reaction Status Date / Time adhesive tape Allergy Rash/Hives Verified 06/29/24 12:37 fire ant Allergy Anaphylaxis Verified 06/29/24 12:37 Physical Exam Vitals: Vital Signs Temp Pulse Resp BP Pulse Ox 11/15/24 15:57 97.3 F L 72 16 165/86 97 Intake and Output 11/15/24 11/15/24 11/15/24 06:59 14:59 22:59 Other: Weight 95.708 kg The patient appeared well nourished and normally developed. Vital signs as documented. Body mass is 32.1 Head exam is unremarkable. No scleral icterus or corneal arcus noted. Neck is without jugular venous distension, thyromegaly, or carotid bruits. Carotid upstrokes are brisk bilaterally. Evidence of teeth grinding and the patient has a Mallampati class III Lungs are clear to auscultation and percussion. Cardiac exam reveals the PMI to be normally sized and situated. Rhythm is regular. First and second heart sounds normal. No murmurs, rubs or gallops. Abdominal exam reveals normal bowel sounds, no masses, no organomegaly and no aortic enlargement. Extremities are nonedematous and both femoral and pedal pulses are normal. Examination of the skin revealed no evidence of significant rashes, suspicious appearing nevi or other concerning lesions. Neurologically, the patient is awake and alert and the patient does not have any focal neurological deficit. Cranial nerves are essentially intact. Assessment and Plan Plan: Chronic fatigue/sleepiness, Ashley score is at 9. The patient is experiencing sleep fragmentation, partly related to prostatism and BPH and nocturia. Obstructive sleep apnea is possible although considered to be less likely. He has history of grinding and is wearing a bite guard, which is another contributing factor is poor sleep fragmentation. BPH with symptoms of prostatism, awaiting a TURP COPD Diabetes mellitus type 2 Hypertension Hyperlipidemia Chronic anemia, iron deficiency Previous history of TIA Osteoarthritis Acid reflux Plan Proceed with TURP The patient will need a home sleep study to evaluate the presence of sleep apnea. My overall clinical suspicion is quite low. However, based on his ongoing symptoms of sleepiness and fatigue, we will screen this patient for obstructive sleep apnea. I would suggest doing a home sleep study approximately 2 months following the TURP Continue using the bite guard Optimize comorbidities Will continue to follow Sleep Note - Sleep Data ESS Total: 9 - Sleep Note Sleep Note: Temperature: 97.3 F Pulse Rate: 72 Respiratory Rate: 16 Blood Pressure: 165/86 SpO2: 97 Height: 5 ft 8 in Weight: 95.708 kg BMI: Neck Circumference: 16.5
== END ==
LOC: 3 N SLEEP 14:31
PROVIDERS: ATTEND Internal Medicine Critical Care Medicine
DX: E11.9 Type 2 diabetes mellitus without complications (principal); R53.82 Chronic fatigue, unspecified; N40.1 Benign prostatic hyperplasia with lower urinary tract symptoms; J44.9 Chronic obstructive pulmonary disease, unspecified; I10 Essential (primary) hypertension; E78.5 Hyperlipidemia, unspecified; D64.9 Anemia, unspecified; E61.1 Iron deficiency; K21.9 Gastro-esophageal reflux disease without esophagitis; M19.09 Primary osteoarthritis, other specified site; Z86.73 Personal history of transient ischemic attack (TIA), and cerebral infarction without residual deficits; Z87.891 Personal history of nicotine dependence; Z91.09 Other allergy status, other than to drugs and biological substances; Z91.038 Other insect allergy status
CPT/HCPCS: 99211

== ENCOUNTER 2024-12-07 01:03 | Emergency (ER) | payer MEDICARE ==
[2024-12-07 01:07] VITALS: RESP 18; TEMP 97.9
--- NOTE | 2024-12-07 01:53 | ED ---
General Adult HPI - General Chief complaint: Urogenital Stated complaint: Urogential Time Seen by Provider: 12/07/24 01:17 Source: patient Mode of arrival: ambulatory Limitations: no limitations - History of Present Illness Initial comments: 79-year-old male coming into the ER tonight because his Avendaño catheter is not draining. He had a TURP procedure earlier today at [facility]. Tonight before he took a shower he unhooked his Avendaño and when he put it back on he noticed it was not draining quite right. He is having some suprapubic pressure. No back pain, vomiting, fever. He is having some blood-tinged urine. He is concerned there may be a blood clot blocking the outflow. - Related Data Home Medications Medication Instructions Recorded Confirmed Aspirin EC [Ecotrin Low Dose] 81 mg PO DAILY 08/03/19 11/15/24 Betamethasone Dipropionate 1 applic TOPICAL BID PRN 08/03/19 11/15/24 [Betamethasone Dipropionate 0.05% Cream] EPINEPHrine (Auto Inject) [Epipen] 0.3 mg IM ONCE PRN 08/03/19 11/15/24 Olmesartan Medoxomil [Benicar] 40 mg PO DAILY 08/03/19 11/15/24 Rosuvastatin [Crestor] 10 mg PO DAILY 08/03/19 11/15/24 Ubidecarenone [Co Q-10] 400 mg PO DAILY 08/03/19 11/15/24 metFORMIN HCL [Glucophage] 500 mg PO BID 08/03/19 11/15/24 Dutasteride/Tamsulosin HCl [Elizabeth 1 cap PO DAILY 04/22/20 11/15/24 0.5-0.4 mg Capsule] Mv-Min/Folic/K1/Lycopen/Lutein 1 tab PO DAILY 04/22/20 06/29/24 [Centrum Silver Men Tablet] Natural Vitamin K2 As Mk-7 100 1 cap PO DAILY 04/22/20 06/29/24 amLODIPine [Norvasc] 10 mg PO HS 04/22/20 11/15/24 Albuterol Sulfate [Proair Hfa] 1 puff INHALATION RT-Q4H PRN 09/05/21 11/15/24 Ascorbic Acid [Vitamin C with Haritha 1,000 mg PO DAILY 09/05/21 06/29/24 Hips] Ferrous Sulfate [Feosol] 325 mg PO DAILY 09/05/21 11/15/24 Metoprolol Succinate [Toprol XL] 25 mg PO HS 09/05/21 11/15/24 Psyllium Husk (with Sugar) 2 scoop PO DAILY 09/05/21 06/29/24 [Metamucil Powder] Selenium 200 mcg PO DAILY 09/05/21 06/29/24 Zolpidem [Ambien] 5 mg PO HS PRN 09/05/21 11/15/24 Omeprazole 20 mg PO DAILY PRN 08/19/22 06/29/24 Cetirizine HCl [Zyrtec] 10 mg PO HS 06/29/24 11/15/24 Cholecalciferol [Vitamin D3 (125 250 mcg PO DAILY 06/29/24 06/29/24 Mcg = 5000 Iu)] Clotrimazole/Betameth Cream 1 applic TOPICAL BID PRN 06/29/24 11/15/24 [Lotrisone] Fluorometholone 0.1% Ophth Lizzie 1 drop RIGHT EYE TID 06/29/24 06/29/24 [Fml] Fluticasone/Umeclidin/Vilanter 1 puff INHALATION RT-DAILY 06/29/24 11/15/24 [Trelegy Ellipta 100-62.5-25] Lactobacillus Acidophilus 1 cap PO DAILY 06/29/24 06/29/24 [Acidophilus Probiotic] Lugol's Solution Of Iodine 2% 3 drops PO MOWEFR 06/29/24 06/29/24 Magnesium Oxide [Magnesium] 500 mg PO DAILY 06/29/24 06/29/24 Potassium Citrate 99 mg PO DAILY 06/29/24 06/29/24 Thiamine [Vitamin B-1] 300 mg PO DAILY 06/29/24 06/29/24 Triamcinolone 0.1% Cream [Kenalog 1 applicatio TOPICAL BID PRN 06/29/24 11/15/24 0.1% Cream] Turmeric Curcumin 1,950mg 1,950 mg PO DAILY 06/29/24 06/29/24 Zinc Picolinate 100mg 100 mg PO DAILY 06/29/24 06/29/24 methocarbamoL [Robaxin-750] 750 mg PO Q8H PRN 06/29/24 11/15/24 Amoxicillin 500 mg PO DIRECTED 11/15/24 11/15/24 Tamsulosin [Flomax] 0.5 mg PO DAILY 11/15/24 11/15/24 Previous Rx's Medication Instructions Recorded Ketorolac [Toradol] 10 mg PO Q8HR #15 tab 06/29/24 Allergies Allergy/AdvReac Type Severity Reaction Status Date / Time adhesive tape Allergy Rash/Hives Verified 06/29/24 12:37 fire ant Allergy Anaphylaxis Verified 06/29/24 12:37 Sulfa (Sulfonamide Allergy Rash/Hives Verified 12/07/24 01:08 Antibiotics) Review of Systems ROS Statement: Those systems with pertinent positive or pertinent negative responses have been documented in the HPI. ROS Other: All systems not noted in ROS Statement are negative. Past Medical History Past Medical History: COPD, CVA/TIA, Diabetes Mellitus, Hyperlipidemia, Hypertension, Prostate Disorder Additional Past Medical History / Comment(s): Headache, hiatal hernia, hx TIA 2019, slurred speech, vasovagal syncope. History of Any Multi-Drug Resistant Organisms: None Reported Past Surgical History: Back Surgery, Orthopedic Surgery Additional Past Surgical History / Comment(s): Lymph node, rectal fistula, sinus surgery, left knee, right shoulder, right knee surgery, bilateral carpal tunnel, hemmorhoidectomy, lasik eye surgery. Past Anesthesia/Blood Transfusion Reactions: No Reported Reaction Past Psychological History: No Psychological Hx Reported Smoking Status: Former smoker Past Alcohol Use History: Occasional Past Drug Use History: None Reported - Past Family History Mother Family Medical History: No Reported History, Hyperlipidemia, Hypertension, Osteoarthritis (OA) Additional Family Medical History / Comment(s): sinus headaches, snoring Father Family Medical History: No Reported History Additional Family Medical History / Comment(s): snoring, sinus headaches Brother(s) Family Medical History: No Reported History Sister(s) Family Medical History: Diabetes Mellitus, Thyroid Disorder Daughter(s) Family Medical History: Diabetes Mellitus, Hypertension Son(s) Family Medical History: No Reported History General Exam Limitations: no limitations General appearance: alert, in no apparent distress Head exam: Present: atraumatic, normocephalic, normal inspection Eye exam: Present: normal appearance, EOMI Neck exam: Present: normal inspection. Absent: meningismus Respiratory exam: Absent: respiratory distress Cardiovascular Exam: Present: regular rate GI/Abdominal exam: Present: soft. Absent: distended, tenderness, guarding, rebound, rigid Neurological exam: Present: alert, oriented X3 Psychiatric exam: Present: normal affect, normal mood Skin exam: Present: warm, dry, normal color Course Vital Signs 12/07/24 01:04 Temperature 97.9 F Pulse Rate 63 Respiratory 18 Rate Blood Pressure 160/72 O2 Sat by Pulse 98 Oximetry Medical Decision Making - Medical Decision Making Was pt. sent in by a medical professional or institution (, [facility], [employer]UR [employer]ER, urgent care, hospital, or fci...) When possible be specific @ -No Did you speak to anyone other than the patient for history (EMS, parent, family, police, friend...)? What history was obtained from this source @ -No Did you review nursing and triage notes (agree or disagree)? Why? @ -I reviewed and agree with nursing and triage notes Were old charts reviewed (outside hosp., previous admission, EMS record, old EKG, old radiological studies, urgent care reports/EKG's, fci records)? Report findings @ -No old charts were reviewed Differential Diagnosis (chest pain, altered mental status, abdominal pain women, abdominal pain men, vaginal bleeding, weakness, fever, dyspnea, syncope, headache, dizziness, GI bleed, back pain, seizure, CVA, palpatations, mental health, musculoskeletal)? @ -Differential will includes equipment malfunction, blood clot, stone, not an all-inclusive list EKG interpreted by me (3pts min.). @ -As above X-rays interpreted by me (1pt min.). @ -None done CT interpreted by me (1pt min.). @ -None done U/S interpreted by me (1pt. min.). @ -None done What testing was considered but not performed or refused? (CT, X-rays, U/S, labs)? Why? @ -None What meds were considered but not given or refused? Why? @ -None Did you discuss the management of the patient with other professionals (professionals i.e. [facility] Garcia, FUR DRESSER, lab, RT, psych nurse, social work coordinator, vacuum kettle cook, teacher, highway patrol officer, case packer)? Give summary @ -No Was smoking cessation discussed for >3mins.? @ -No Was critical care preformed (if so, how long)? @ -No Were there social determinants of health that impacted care today? How? (Homelessness, low income, unemployed, alcoholism, drug addiction, transportation, low edu. Level, literacy, decrease access to med. care, intermediate, r ehab)? @ -No Was there de-escalation of care discussed even if they declined (Discuss DNR or withdrawal of care, Hospice)? DNR status @ -No What co-morbidities impacted this encounter? (DM, HTN, Smoking, COPD, CAD, Cancer, CVA, ARF, Chemo, Hep., AIDS, mental health diagnosis, sleep apnea, morbid obesity)? @ -None Was patient admitted / discharged? Hospital course, mention meds given and route, prescriptions, significant lab abnormalities, going to OR and other pertinent info. @ -79-year-old male coming in with chief complaint of "my catheter will not drain". He is having suprapubic pressure and no other symptoms. Nurse Isaura irrigates the Avendaño and evacuates a blood clot. Avendaño is now draining much better and the patient is feeling better. Follow-up with PCP and urologist. Report back to ER with any new or worsening symptoms. Discussed return parameters and answered all questions. Patient conveyed verbal understanding and agreed to the plan. I discussed this case in detail with my attending Dr. Malloy Undiagnosed new problem with uncertain prognosis? @ -No Drug Therapy requiring intensive monitoring for toxicity (Heparin, Nitro, Insulin, Cardizem)? @ -No Were any procedures done? @ -No Diagnosis/symptom? @ -Occluded Avendaño catheter Acute, or Chronic, or Acute on Chronic? @ -Acute Uncomplicated (without systemic symptoms) or Complicated (systemic symptoms)? @ -Uncomplicated Side effects of treatment? @ -No Exacerbation, Progression, or Severe Exacerbation? @ -No Poses a threat to life or bodily function? How? (Chest pain, [place], SC, pneumonia, PE, COPD, DKA, ARF, appy, cholecystitis, CVA, Diverticulitis, Homicidal, Suicidal, threat to staff... and all critical care pts) @ -No Disposition Clinical Impression: Retention of urine due to occlusion of Avendaño catheter Disposition: HOME SELF-CARE Condition: Good Instructions (If sedation given, give patient instructions): Avendaño Catheter Placement and Care (ED) Additional Instructions: Follow-up with your PCP and urologist. Report back to ER with any new or worsening symptoms. Is patient prescribed a controlled substance at d/c from ED?: No Referrals: Roseline Bradley MD [Primary Care Provider] - 1-2 days Time of Disposition: 01:53
[2024-12-07 02:00] VITALS: BP 145/79; PULSE 68
== END 2024-12-07 01:55 | disposition home or self-care (01) ==
LOC: EC 01:03
DX: R33.9 Retention of urine, unspecified (principal); Z87.891 Personal history of nicotine dependence; Z88.2 Allergy status to sulfonamides; Z91.09 Other allergy status, other than to drugs and biological substances; Z91.038 Other insect allergy status; Y84.6 Urinary catheterization as the cause of abnormal reaction of the patient, or of later complication, without mention of misadventure at the time of the procedure
CPT/HCPCS: 99283

== ENCOUNTER 2024-12-07 13:14 | Emergency (ER) | payer MEDICARE ==
[2024-12-07 13:23] VITALS: RESP 18
--- NOTE | 2024-12-07 14:54 | ED ---
Male Urogenital HPI - General Chief complaint: Urogenital Stated complaint: poss blood clot/dc 12/07 Time Seen by Provider: 12/07/24 14:51 Source: patient, RN notes reviewed Mode of arrival: ambulatory Limitations: no limitations - History of Present Illness Initial comments: 79-year-old male presenting for Avendaño catheter issue x 4 hours. States yester day he had a TURP procedure by Dr. Rodriguez urologist at [facility] with Avendaño catheter placement. States he came to the ER for evaluation at 1 AM earlier this morning as there was a blood clot clogging his Avendaño catheter. At this time they performed irrigation which removed the clot. Avnedaño catheter was draining normally until approximately 4 hours ago. Patient reports since then, the catheter has not been draining and he has suprapubic pressure as though he needs to urinate. Denies blood thinners. - Related Data Home Medications Medication Instructions Recorded Confirmed Aspirin EC [Ecotrin Low Dose] 81 mg PO DAILY 08/03/19 11/15/24 Betamethasone Dipropionate 1 applic TOPICAL BID PRN 08/03/19 11/15/24 [Betamethasone Dipropionate 0.05% Cream] EPINEPHrine (Auto Inject) [Epipen] 0.3 mg IM ONCE PRN 08/03/19 11/15/24 Olmesartan Medoxomil [Benicar] 40 mg PO DAILY 08/03/19 11/15/24 Rosuvastatin [Crestor] 10 mg PO DAILY 08/03/19 11/15/24 Ubidecarenone [Co Q-10] 400 mg PO DAILY 08/03/19 11/15/24 metFORMIN HCL [Glucophage] 500 mg PO BID 08/03/19 11/15/24 Dutasteride/Tamsulosin HCl [Elizabeth 1 cap PO DAILY 04/22/20 11/15/24 0.5-0.4 mg Capsule] Mv-Min/Folic/K1/Lycopen/Lutein 1 tab PO DAILY 04/22/20 06/29/24 [Centrum Silver Men Tablet] Natural Vitamin K2 As Mk-7 100 1 cap PO DAILY 04/22/20 06/29/24 amLODIPine [Norvasc] 10 mg PO HS 04/22/20 11/15/24 Albuterol Sulfate [Proair Hfa] 1 puff INHALATION RT-Q4H PRN 11/25/21 02/04/25 Ascorbic Acid [Vitamin C with Haritha 1,000 mg PO DAILY 09/05/21 06/29/24 Hips] Ferrous Sulfate [Feosol] 325 mg PO DAILY 09/05/21 11/15/24 Metoprolol Succinate [Toprol XL] 25 mg PO HS 09/05/21 11/15/24 Psyllium Husk (with Sugar) 2 scoop PO DAILY 09/05/21 06/29/24 [Metamucil Powder] Selenium 200 mcg PO DAILY 09/05/21 06/29/24 Zolpidem [Ambien] 5 mg PO HS PRN 09/05/21 11/15/24 Omeprazole 20 mg PO DAILY PRN 08/19/22 06/29/24 Cetirizine HCl [Zyrtec] 10 mg PO HS 06/29/24 11/15/24 Cholecalciferol [Vitamin D3 (125 250 mcg PO DAILY 06/29/24 06/29/24 Mcg = 5000 Iu)] Clotrimazole/Betameth Cream 1 applic TOPICAL BID PRN 06/29/24 11/15/24 [Lotrisone] Fluorometholone 0.1% Ophth Lizzie 1 drop RIGHT EYE TID 06/29/24 06/29/24 [Fml] Fluticasone/Umeclidin/Vilanter 1 puff INHALATION RT-DAILY 06/29/24 11/15/24 [Trelegy Ellipta 100-62.5-25] Lactobacillus Acidophilus 1 cap PO DAILY 06/29/24 06/29/24 [Acidophilus Probiotic] Lugol's Solution Of Iodine 2% 3 drops PO MOWEFR 06/29/24 06/29/24 Magnesium Oxide [Magnesium] 500 mg PO DAILY 06/29/24 06/29/24 Potassium Citrate 99 mg PO DAILY 06/29/24 06/29/24 Thiamine [Vitamin B-1] 300 mg PO DAILY 06/29/24 06/29/24 Triamcinolone 0.1% Cream [Kenalog 1 applicatio TOPICAL BID PRN 06/29/24 11/15/24 0.1% Cream] Turmeric Curcumin 1,950mg 1,950 mg PO DAILY 06/29/24 06/29/24 Zinc Picolinate 100mg 100 mg PO DAILY 06/29/24 06/29/24 methocarbamoL [Robaxin-750] 750 mg PO Q8H PRN 06/29/24 11/15/24 Amoxicillin 500 mg PO DIRECTED 11/15/24 11/15/24 Tamsulosin [Flomax] 0.5 mg PO DAILY 11/15/24 11/15/24 Previous Rx's Medication Instructions Recorded Ketorolac [Toradol] 10 mg PO Q8HR #15 tab 06/29/24 Allergies Allergy/AdvReac Type Severity Reaction Status Date / Time adhesive tape Allergy Rash/Hives Verified 12/07/24 13:23 fire ant Allergy Anaphylaxis Verified 12/07/24 13:23 Sulfa (Sulfonamide Allergy Rash/Hives Verified 12/07/24 13:23 Antibiotics) Review of Systems ROS Statement: Those systems with pertinent positive or pertinent negative responses have been documented in the HPI. ROS Other: All systems not noted in ROS Statement are negative. Past Medical History Past Medical History: COPD, CVA/TIA, Diabetes Mellitus, Hyperlipidemia, Hypertension, Prostate Disorder Additional Past Medical History / Comment(s): Headache, hiatal hernia, hx TIA 2019, slurred speech, vasovagal syncope. History of Any Multi-Drug Resistant Organisms: None Reported Past Surgical History: Back Surgery, Orthopedic Surgery Additional Past Surgical History / Comment(s): Lymph node, rectal fistula, sinus surgery, left knee, right shoulder, right knee surgery, bilateral carpal tunnel, hemmorhoidectomy, lasik eye surgery. Past Anesthesia/Blood Transfusion Reactions: No Reported Reaction Past Psychological History: No Psychological Hx Reported Smoking Status: Former smoker Past Alcohol Use History: Occasional Past Drug Use History: None Reported - Past Family History Mother Family Medical History: No Reported History, Hyperlipidemia, Hypertension, Osteoarthritis (OA) Additional Family Medical History / Comment(s): sinus headaches, snoring Father Family Medical History: No Reported History Additional Family Medical History / Comment(s): snoring, sinus headaches Brother(s) Family Medical History: No Reported History Sister(s) Family Medical History: Diabetes Mellitus, Thyroid Disorder Daughter(s) Family Medical History: Diabetes Mellitus, Hypertension Son(s) Family Medical History: No Reported History General Exam Limitations: no limitations General appearance: alert, in no apparent distress Head exam: Present: atraumatic, normocephalic, normal inspection Eye exam: Present: normal appearance, PERRL, EOMI. Absent: scleral icterus, conjunctival injection, periorbital swelling GI/Abdominal exam: Present: soft, normal bowel sounds. Absent: distended, te nderness, guarding, rebound, rigid exam: Present: normal inspection, other (Avendaño catheter present, does not appear to be draining) Neurological exam: Present: alert, oriented X3 Psychiatric exam: Present: normal affect, normal mood Skin exam: Present: warm, dry, intact, normal color. Absent: rash Course Vital Signs 12/07/24 13:20 Temperature 97.7 F Pulse Rate 61 Respiratory 18 Rate Blood Pressure 110/76 O2 Sat by Pulse 98 Oximetry Medical Decision Making - Medical Decision Making Was pt. sent in by a medical professional or institution (, PA, TECHNICAL MAINTENANCE SPECIALIST, urgent care, hospital, or alf...) When possible be specific @ -No Did you speak to anyone other than the patient for history (EMS, parent, family, police, friend...)? What history was obtained from this source @ -No Did you review nursing and triage notes (agree or disagree)? Why? @ -I reviewed and agree with nursing and triage notes Were old charts reviewed (outside hosp., previous admission, EMS record, old EKG, old radiological studies, urgent care reports/EKG's, alf records)? Report findings @ -Reviewed ER note from earlier today Differential Diagnosis (chest pain, altered mental status, abdominal pain women, abdominal pain men, vaginal bleeding, weakness, fever, dyspnea, syncope, headache, dizziness, GI bleed, back pain, seizure, CVA, palpatations, mental health, musculoskeletal)? @ -Avendaño catheter issue, blood clot in Avendaño EKG interpreted by me (3pts min.). @ -None X-rays interpreted by me (1pt min.). @ -None done CT interpreted by me (1pt min.). @ -None done U/S interpreted by me (1pt. min.). @ -None done What testing was considered but not performed or refused? (CT, X-rays, U/S, labs)? Why? @ -None What meds were considered but not given or refused? Why? @ -None Did you discuss the management of the patient with other professionals (professionals i.e. , PA, TECHNICAL MAINTENANCE SPECIALIST, lab, RT, psych nurse, social economist, self defense instructor, teacher, tourist information officer, briefcase sewer)? Give summary @ -No Was smoking cessation discussed for >3mins.? @ -No Was critical care preformed (if so, how long)? @ -No Were there social determinants of health that impacted care today? How? (Homelessness, low income, unemployed, alcoholism, drug addiction, transportation, low edu. Level, literacy, decrease access to med. care, snf, rehab)? @ -No Was there de-escalation of care discussed even if they declined (Discuss DNR or withdrawal of care, Hospice)? DNR status @ -No What co-morbidities impacted this encounter? (DM, HTN, Smoking, COPD, CAD, Cancer, CVA, ARF, Chemo, Hep., AIDS, mental health diagnosis, sleep apnea, morbid obesity)? @ -None Was patient admitted / discharged? Hospital course, mention meds given and route, prescriptions, significant lab abnormalities, going to OR and other pertinent info. @ -Discharged. 79-year-old male presenting for Avendaño not draining x 4 hours. Bladder scan 180. DAVID Madison performed irrigation to Avendaño catheter. After irrigation, Avendaño was draining properly and patient reports symptoms have resolved. Advised patient to follow-up for urology appointment in 2 days. Appropriate return precautions discussed. Case was discussed with the ED attending Dr. Caruso. Undiagnosed new problem with uncertain prognosis? @ -No Drug Therapy requiring intensive monitoring for toxicity (Heparin, Nitro, Insulin, Cardizem)? @ -No Were any procedures done? @ -No Diagnosis/symptom? @ -Avendaño catheter issue Acute, or Chronic, or Acute on Chronic? @ -Acute Uncomplicated (without systemic symptoms) or Complicated (systemic symptoms)? @ -Uncomplicated Side effects of treatment? @ -No Exacerbation, Progression, or Severe Exacerbation? @ -No Poses a threat to life or bodily function? How? (Chest pain, [place], [place], pneumonia, PE, COPD, DKA, ARF, appy, cholecystitis, CVA, Diverticulitis, Homicidal, Suicidal, threat to staff... and all critical care pts) @ -No Disposition Clinical Impression: Avendaño catheter problem Disposition: HOME SELF-CARE Condition: Stable Additional Instructions: Follow-up for appointment with urologist. Please return to the Emergency Department if symptoms worsen or any other concerns. Is patient prescribed a controlled substance at d/c from ED?: No Referrals: Roseline Bradley MD [Primary Care Provider] - 1-2 days Time of Disposition: 15:47
[2024-12-07 15:57] VITALS: BP 112/81; PULSE 64; TEMP 97.9
== END 2024-12-07 16:01 | disposition home or self-care (01) ==
LOC: EC 13:14
DX: Z46.6 Encounter for fitting and adjustment of urinary device (principal); Z87.891 Personal history of nicotine dependence; Z88.2 Allergy status to sulfonamides; Z91.048 Other nonmedicinal substance allergy status; Z91.038 Other insect allergy status
CPT/HCPCS: 51798; 99284

== ENCOUNTER → 2025-01-24 | Outpatient (CLI) | payer MEDICARE ==
--- NOTE | 2025-02-06 21:11 | P.PCN ---
Date of Procedure: 01/24/25 Operative Findings: Home sleep Study Date of service is 01/24/2025 History This is a 78-year-old male patient coming in today due to concerns of sleep apnea. The patient has been suffering of sleep fragmentation and the patient has prostatism/BPH and the patient has excessive nocturia and he has to wake up at least 3-4 times in the middle of the night for urination purposes. For now, the patient is going to bed at around 10:30 PM and is getting up to bed at around 7:00 in the morning. The has noted some occasional snoring. No witnessed apneas. However, the patient has been also also to be fatigued and somewhat sleepy during the day as he can fall asleep and take naps at any time. His current Winfield score is at 9. The patient has history of grinding of the teeth and the patient wears a bite guard. No sleepwalking. No sleep talking. No nighttime chest pain or shortness of breath or heartburn. No anxiety or panic attacks. No sleep paralysis. No hallucinations. No cataplexy. No night terrors. No excessive utilization of caffeinated beverages or alcohol. 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 No personal history of obstructive sleep apnea. No other cardiovascular disease. The patient is scheduled to undergo a TURP for BPH in few weeks time. Physical findings Weight is 210 pounds, Winfield score is 6/24, body mass index is 32 Technical description The [employer] Ap[employer] system was used to complete his home sleep study. This is a type III home sleep study evaluation. The total recording duration was 7 hours and 35 minutes. The study was started at 10:40 PM and it ended at 6:15 AM. There was a total of 7 hours and 23 minutes of flow monitoring and 7 hours and 21 minutes of oxygen saturation monitoring. Results The respiratory analysis showed a total of 4 obstructive apneas and 24 obstructive hypopneas. The resulting AHI was 3.8. Noted AHI in the supine body position was 7.8 Oxygenation analysis the baseline pulse ox was 94%, average pulse ox during sleep with 90% with a minimum pulse ox of 84%. Patient spent approximately 44 minutes of sleep time below pulse ox of 89%. Cardiac summary Average heart rate was 77 with a minimum heart of 62 and a maximum heart of 101 Assessment Primary snoring, no evidence of any sleep breathing disorder. AHI is at 3.8. Respiratory events are essentially from obstructive hypopneas, more predominant in the supine body position. Chronic fatigue/sleepiness, Winfield score is at 9. The patient is experiencing sleep fragmentation, partly related to prostatism and BPH and nocturia. Obstructive sleep apnea is possible although considered to be less likely. He has history of grinding and is wearing a bite guard, which is another contributing factor is poor sleep fragmentation. BPH with symptoms of prostatism, awaiting a TURP COPD Diabetes mellitus type 2 Hypertension Hyperlipidemia Chronic anemia, iron deficiency Previous history of TIA Osteoarthritis Acid reflux Plan No need for CPAP therapy Recommend sleeping on the side Optimize COPD Optimize symptoms of prostatism and the patient is having a TURP done. Continue using the bite guard Maintain good sleep hygiene measures in the regular sleep schedule Follow-up with the primary care.
== END ==
LOC: 3 N SLEEP 16:42
PROVIDERS: ATTEND Internal Medicine Critical Care Medicine
DX: G47.33 Obstructive sleep apnea (adult) (pediatric) (principal); N40.1 Benign prostatic hyperplasia with lower urinary tract symptoms; J44.9 Chronic obstructive pulmonary disease, unspecified; D50.9 Iron deficiency anemia, unspecified; E11.9 Type 2 diabetes mellitus without complications; E78.5 Hyperlipidemia, unspecified; I10 Essential (primary) hypertension; K21.9 Gastro-esophageal reflux disease without esophagitis; M19.90 Unspecified osteoarthritis, unspecified site; Z86.73 Personal history of transient ischemic attack (TIA), and cerebral infarction without residual deficits; Z91.048 Other nonmedicinal substance allergy status; Z91.038 Other insect allergy status; Z88.2 Allergy status to sulfonamides; Z87.891 Personal history of nicotine dependence

== ENCOUNTER 2025-04-06 20:27 | Emergency (ER) | payer MEDICARE ==
--- NOTE | 2025-04-06 20:58 | ED ---
SOB HPI - General Chief Complaint: Shortness of Breath Stated Complaint: Difficulty Breathing Time Seen by Provider: 04/06/25 20:45 Source: patient, family, RN notes reviewed Mode of arrival: wheelchair Limitations: no limitations - History of Present Illness MD Complaint: shortness of breath Onset/Timin -: hour(s) Time: 12:00 Consistency: constant Improves With: rest Worsens With: exertion Known History Of: COPD, diabetes Associated Symptoms: cough Treatments Prior to Arrival: bronchodilator - Related Data Home Medications Medication Instructions Recorded Confirmed Aspirin EC [Ecotrin Low Dose] 81 mg PO DAILY 08/03/19 11/15/24 Betamethasone Dipropionate 1 applic TOPICAL BID PRN 08/03/19 11/15/24 [Betamethasone Dipropionate 0.05% Cream] EPINEPHrine (Auto Inject) [Epipen] 0.3 mg IM ONCE PRN 08/03/19 11/15/24 Olmesartan Medoxomil [Benicar] 40 mg PO DAILY 08/03/19 11/15/24 Rosuvastatin [Crestor] 10 mg PO DAILY 08/03/19 11/15/24 Ubidecarenone [Co Q-10] 400 mg PO DAILY 08/03/19 11/15/24 metFORMIN HCL [Glucophage] 500 mg PO BID 08/03/19 11/15/24 Dutasteride/Tamsulosin HCl [Elizabeth 1 cap PO DAILY 04/22/20 11/15/24 0.5-0.4 mg Capsule] Mv-Min/Folic/K1/Lycopen/Lutein 1 tab PO DAILY 04/22/20 06/29/24 [Centrum Silver Men Tablet] Natural Vitamin K2 As Mk-7 100 1 cap PO DAILY 04/22/20 06/29/24 amLODIPine [Norvasc] 10 mg PO HS 04/22/20 11/15/24 Albuterol Sulfate [Proair Hfa] 1 puff INHALATION RT-Q4H PRN 09/05/21 11/15/24 Ascorbic Acid [Vitamin C with Haritha 1,000 mg PO DAILY 09/05/21 06/29/24 Hips] Ferrous Sulfate [Feosol] 325 mg PO DAILY 09/05/21 11/15/24 Metoprolol Succinate [Toprol XL] 25 mg PO HS 09/05/21 11/15/24 Psyllium Husk (with Sugar) 2 scoop PO DAILY 09/05/21 06/29/24 [Metamucil Powder] Selenium 200 mcg PO DAILY 09/05/21 06/29/24 Zolpidem [Ambien] 5 mg PO HS PRN 09/05/21 11/15/24 Omeprazole 20 mg PO DAILY PRN 08/19/22 06/29/24 Cetirizine HCl [Zyrtec] 10 mg PO HS 06/29/24 11/15/24 Cholecalciferol [Vitamin D3 (125 250 mcg PO DAILY 06/29/24 06/29/24 Mcg = 5000 Iu)] Clotrimazole/Betameth Cream 1 applic TOPICAL BID PRN 06/29/24 11/15/24 [Lotrisone] Fluorometholone 0.1% Ophth Lizzie 1 drop RIGHT EYE TID 06/29/24 06/29/24 [Fml] Fluticasone/Umeclidin/Vilanter 1 puff INHALATION RT-DAILY 06/29/24 11/15/24 [Trelegy Ellipta 100-62.5-25] Lactobacillus Acidophilus 1 cap PO DAILY 06/29/24 06/29/24 [Acidophilus Probiotic] Lugol's Solution Of Iodine 2% 3 drops PO MOWEFR 06/29/24 06/29/24 Magnesium Oxide [Magnesium] 500 mg PO DAILY 06/29/24 06/29/24 Potassium Citrate 99 mg PO DAILY 06/29/24 06/29/24 Thiamine [Vitamin B-1] 300 mg PO DAILY 06/29/24 06/29/24 Triamcinolone 0.1% Cream [Kenalog 1 applicatio TOPICAL BID PRN 06/29/24 11/15/24 0.1% Cream] Turmeric Curcumin 1,950mg 1,950 mg PO DAILY 06/29/24 06/29/24 Zinc Picolinate 100mg 100 mg PO DAILY 06/29/24 06/29/24 methocarbamoL [Robaxin-750] 750 mg PO Q8H PRN 06/29/24 11/15/24 Amoxicillin 500 mg PO DIRECTED 11/15/24 11/15/24 Tamsulosin [Flomax] 0.5 mg PO DAILY 11/15/24 11/15/24 Previous Rx's Medication Instructions Recorded Ketorolac [Toradol] 10 mg PO Q8HR #15 tab 06/29/24 Albuterol Nebulized [Ventolin 2.5 mg INHALATION Q4H PRN #75 ml 04/06/25 Nebulized] Amoxic-Pot Clav 875-125Mg 1 tab PO BID 1 Days #14 tab 04/06/25 [Augmentin 875-125] Azithromycin [Zithromax Z Pack] 250 mg PO DAILY #4 tab 04/06/25 predniSONE 50 mg PO DAILY #5 tab 04/06/25 Allergies Allergy/AdvReac Type Severity Reaction Status Date / Time adhesive tape Allergy Rash/Hives Verified 04/06/25 20:38 fire ant Allergy Anaphylaxis Verified 04/06/25 20:38 Sulfa (Sulfonamide Allergy Rash/Hives Verified 04/06/25 20:38 Antibiotics) Review of Systems ROS Statement: Those systems with pertinent positive or pertinent negative responses have been documented in the HPI. ROS Other: All systems not noted in ROS Statement are negative. Past Medical History Past Medical History: COPD, CVA/TIA, Diabetes Mellitus, Hyperlipidemia, Hypertension, Prostate Disorder Additional Past Medical History / Comment(s): Headache, hiatal hernia, hx TIA 2018, slurred speech, vasovagal syncope. History of Any Multi-Drug Resistant Organisms: None Reported Past Surgical History: Back Surgery, Orthopedic Surgery Additional Past Surgical History / Comment(s): Lymph node, rectal fistula, sinus surgery, left knee, right shoulder, right knee surgery, bilateral carpal tunnel, hemmorhoidectomy, lasik eye surgery. Past Anesthesia/Blood Transfusion Reactions: No Reported Reaction Past Psychological History: No Psychological Hx Reported Smoking Status: Former smoker Past Alcohol Use History: Occasional Past Drug Use History: None Reported - Past Family History Mother Family Medical History: No Reported History, Hyperlipidemia, Hypertension, Osteoarthritis (OA) Additional Family Medical History / Comment(s): sinus headaches, snoring Father Family Medical History: No Reported History Additional Family Medical History / Comment(s): snoring, sinus headaches Brother(s) Family Medical History: No Reported History Sister(s) Family Medical History: Diabetes Mellitus, Thyroid Disorder Daughter(s) Family Medical History: Diabetes Mellitus, Hypertension Son(s) Family Medical History: No Reported History General Exam Limitations: no limitations General appearance: alert, in no apparent distress Head exam: Present: atraumatic, normocephalic, normal inspection Eye exam: Present: normal appearance, PERRL, EOMI. Absent: scleral icterus, conjunctival injection, periorbital swelling ENT exam: Present: normal exam, mucous membranes moist Neck exam: Present: normal inspection. Absent: tenderness, meningismus, lymphadenopathy Respiratory exam: Present: respiratory distress, rhonchi (Pleuritic friction rub with expiration in all purcell), accessory muscle use, decreased breath sounds, prolonged expiratory. Absent: wheezes, rales, stridor Cardiovascular Exam: Present: regular rate, normal rhythm, normal heart sounds. Absent: systolic murmur, diastolic murmur, rubs, gallop, clicks GI/Abdominal exam: Present: soft, normal bowel sounds. Absent: distended, tenderness, guarding, rebound, rigid Extremities exam: Present: normal inspection, full ROM, normal capillary refill. Absent: tenderness, pedal edema, joint swelling, calf tenderness Back exam: Present: normal inspection Neurological exam: Present: alert, oriented X3, CN II-XII intact Psychiatric exam: Present: normal affect, normal mood Skin exam: Present: warm, dry, intact, normal color. Absent: rash Course Vital Signs 04/06/25 04/06/25 04/06/25 20:34 21:15 21:28 Temperature 98.4 F Pulse Rate 114 H 109 H 97 Respiratory 24 26 H Rate Blood Pressure 173/94 138/70 O2 Sat by Pulse 93 L 94 L Oximetry 04/06/25 04/06/25 04/06/25 21:34 22:00 23:00 Temperature Pulse Rate 95 94 97 Respiratory 24 22 Rate Blood Pressure 122/72 127/66 O2 Sat by Pulse 92 L 93 L Oximetry Medical Decision Making - Medical Decision Making Was pt. sent in by a medical professional or institution (, PA, HOME AND SCHOOL VISITOR, urgent care, hospital, or [facility]...) When possible be specific @ -[No] Did you speak to anyone other than the patient for history (EMS, parent, family, police, friend...)? What history was obtained from this source @ -[No] Did you review nursing and triage notes (agree or disagree)? Why? @ -[I reviewed and agree with nursing and triage notes] Were old charts reviewed (outside hosp., previous admission, EMS record, old EKG, old radiological studies, urgent care reports/EKG's, [facility] records)? Report findings @ -[No old charts were reviewed] Differential Diagnosis (chest pain, altered mental status, abdominal pain women, abdominal pain men, vaginal bleeding, weakness, fever, dyspnea, syncope, headache, dizziness, GI bleed, back pain, seizure, CVA, palpatations, mental health, musculoskeletal)? @ -Differential Dyspnea: Coronary syndrome, arrhythmia, tamponade, asthma, COPD, pulmonary embolism, pneumonia, pneumothorax, pulmonary effusion, anaphylaxis, diabetic ketoacidosis, flailed chest, pulmonary contusion, diaphragmatic rupture, anemia, neuromuscu lar, this is not meant to be an all-inclusive list. EKG interpreted by me (3pts min.). @ -Sinus rhythm with occasional PAC. No ST deviation or T wave inversion. Ventricular rate 97 bpm, DIANN 158 ms, QRS 87 ms, QTc 387 ms. X-rays interpreted by me (1pt min.). @ -[None done] CT interpreted by me (1pt min.). @ -[None done] U/S interpreted by me (1pt. min.). @ -[None done] What testing was considered but not performed or refused? (CT, X-rays, U/S, labs)? Why? @ -[None] What meds were considered but not given or refused? Why? @ -[None] Did you discuss the management of the patient with other professionals (professionals i.e. , PA, HOME AND SCHOOL VISITOR, lab, RT, psych nurse, dialysis social worker, eyeglass lens generator, teacher, founder and chief executive officer, child welfare caseworker)? Give summary @ -[No] Was smoking cessation discussed for >3mins.? @ -[No] Was critical care preformed (if so, how long)? @ -[No] Were there social determinants of health that impacted care today? How? (Homelessness, low income, unemployed, alcoholism, drug addiction, tra nsportation, low edu. Level, literacy, decrease access to med. care, fpc, rehab)? @ -[No] Was there de-escalation of care discussed even if they declined (Discuss DNR or withdrawal of care, Hospice)? DNR status @ -[No] What co-morbidities impacted this encounter? (DM, HTN, Smoking, COPD, CAD, Cance r, CVA, ARF, Chemo, Hep., AIDS, mental health diagnosis, sleep apnea, morbid obesity)? @ -COPD, DM, hypertension, hyperlipidemia Was patient admitted / discharged? Hospital course, mention meds given and route, prescriptions, significant lab abnormalities, going to OR and other pertinent info. @ -[hospital course] Undiagnosed new problem with uncertain prognosis? @ -[No] Drug Therapy requiring intensive monitoring for toxicity (Heparin, Nitro, Insulin, Cardizem)? @ -[No] Were any procedures done? @ -[No] Diagnosis/symptom? @ -[default] Acute, or Chronic, or Acute on Chronic? @ -Acute Uncomplicated (without systemic symptoms) or Complicated (systemic symptoms)? @ -Complicated Side effects of treatment? @ -[No] Exacerbation, Progression, or Severe Exacerbation? @ -[No] Poses a threat to life or bodily function? How? (Chest pain, USA, [place], pneumonia, PE, COPD, DKA, ARF, appy, cholecystitis, CVA, Diverticulitis, Homicidal, Suicidal, threat to staff... and all critical care pts) @ -[No] - Lab Data Result diagrams: 04/06/25 20:57 04/06/25 20:57 Lab Results 04/06/25 04/06/25 04/06/25 Range/Units 20:57 20:57 20:57 WBC 14.65 H (4.50-10.00) 10*3/uL RBC 3.77 L (4.40-5.60) 10*6/uL Hgb 11.5 L (13.0-17.0) g/dL Hct 32.2 L (39.6-50.0) % MCV 85.4 (80.0-97.0) fL MCH 30.5 (27.0-32.0) pg MCHC 35.7 (32.0-37.0) g/dL Plt Count 240 (140-440) 10*3/uL MPV 9.6 (9.5-12.2) fL Immature Gran % (Auto) 0.3 % Neutrophils % 84.5 % Lymphocytes % 6.5 % Monocytes % 6.8 % Eosinophils % 1.6 % Basophils % 0.3 % Immature Gran # 0.05 H (0.00-0.04) 10*3/uL Neutrophils # 12.37 H (1.80-7.70) 10*3/uL Lymphocytes # 0.95 (0.90-5.00) 10*3/uL Monocytes # 1.00 (0.20-1.00) 10*3/uL Eosinophils # 0.23 (0.04-0.35) 10*3/uL Basophils # 0.05 (0.00-0.10) 10*3/uL PT 10.2 (10.0-12.5) sec INR 0.9 (<1.2) APTT 25.7 (22.0-30.0) sec Sodium 129 L (137-145) mmol/L Potassium 4.6 (3.5-5.1) mmol/L Chloride 98 (98-107) mmol/L Carbon Dioxide 20 L (22-30) mmol/L Anion Gap 11 mmol/L BUN 22 H (9-20) mg/dL Creatinine 0.92 (0.66-1.25) mg/dL Est GFR (CKD-EPI)AfAm >90 (>60 ml/min/1.73 sqM) Est GFR (CKD-EPI)NonAf 78 (>60 ml/min/1.73 sqM) Glucose 171 H (74-99) mg/dL Plasma Lactic Acid Hilario (0.7-2.0) mmol/L Calcium 9.5 (8.4-10.2) mg/dL Magnesium 1.6 (1.6-2.3) mg/dL Total Bilirubin 0.2 (0.2-1.3) mg/dL AST 26 (17-59) U/L ALT 24 (4-49) U/L Alkaline Phosphatase 119 (38-126) U/L Troponin I (0.000-0.034) ng/mL NT-Pro-B Natriuret Pep 631 pg/mL Total Protein 6.7 (6.3-8.2) g/dL Albumin 4.4 (3.5-5.0) g/dL Influenza Type A (PCR) (Not Detectd) Influenza Type B (PCR) (Not Detectd) RSV (PCR) (Not Detectd) SARS-CoV-2 (PCR) (Not Detectd) 04/06/25 04/06/25 04/06/25 Range/Units 20:57 20:57 21:15 WBC (4.50-10.00) 10*3/uL RBC (4.40-5.60) 10*6/uL Hgb (13.0-17.0) g/dL Hct (39.6-50.0) % MCV (80.0-97.0) fL MCH (27.0-32.0) pg MCHC (32.0-37.0) g/dL Plt Count (140-440) 10*3/uL MPV (9.5-12.2) fL Immature Gran % (Auto) % Neutrophils % % Lymphocytes % % Monocytes % % Eosinophils % % Basophils % % Immature Gran # (0.00-0.04) 10*3/uL Neutrophils # (1.80-7.70) 10*3/uL Lymphocytes # (0.90-5.00) 10*3/uL Monocytes # (0.20-1.00) 10*3/uL Eosinophils # (0.04-0.35) 10*3/uL Basophils # (0.00-0.10) 10*3/uL PT (10.0-12.5) sec INR (<1.2) APTT (22.0-30.0) sec Sodium (137-145) mmol/L Potassium (3.5-5.1) mmol/L Chloride (98-107) mmol/L Carbon Dioxide (22-30) mmol/L Anion Gap mmol/L BUN (9-20) mg/dL Creatinine (0.66-1.25) mg/dL Est GFR (CKD-EPI)AfAm (>60 ml/min/1.73 sqM) Est GFR (CKD-EPI)NonAf (>60 ml/min/1.73 sqM) Glucose (74-99) mg/dL Plasma Lactic Acid Hilario 2.5 H* (0.7-2.0) mmol/L Calcium (8.4-10.2) mg/dL Magnesium (1.6-2.3) mg/dL Total Bilirubin (0.2-1.3) mg/dL AST (17-59) U/L ALT (4-49) U/L Alkaline Phosphatase (38-126) U/L Troponin I <0.012 (0.000-0.034) ng/mL NT-Pro-B Natriuret Pep pg/mL Total Protein (6.3-8.2) g/dL Albumin (3.5-5.0) g/dL Influenza Type A (PCR) Not Detected (Not Detectd) Influenza Type B (PCR) Not Detected (Not Detectd) RSV (PCR) Not Detected (Not Detectd) SARS-CoV-2 (PCR) Not Detected (Not Detectd) Disposition Clinical Impression: Pneumonia Disposition: HOME SELF-CARE Condition: Fair Instructions (If sedation given, give patient instructions): Bacterial Pneumonia (ED) Additional Instructions: Follow-up with primary care in the next 24-48 hours. Return to ER if experiencing fever, chills, bloody sputum or worsening shortness of breath. Prescriptions: Amoxic-Pot Clav 875-125Mg [Augmentin 875-125] 1 tab PO BID 1 Days #14 tab predniSONE 50 mg PO DAILY #5 tab Albuterol Nebulized [Ventolin Nebulized] 2.5 mg INHALATION Q4H PRN #75 ml PRN Reason: difficulty in breathing Azithromycin [Zithromax Z Pack] 250 mg PO DAILY #4 tab Is patient prescribed a controlled substance at d/c from ED?: No Referrals: Roseline Bradley MD [Primary Care Provider] - 1-2 days Time of Disposition: 23:43
[2025-04-06] MEDS: SODIUM CHLORIDE 0.9% 1,000 ML IV ONE (21:06)
[2025-04-06 21:11] LABS: Basophils # (A) 0.05 10*3/uL (0.00-0.10); Basophils % (A) 0.3 %; Eosinophils # (A) 0.23 10*3/uL (0.04-0.35); Eosinophils % (A) 1.6 %; HCT 32.2 % (39.6-50.0); HGB 11.5 g/dL (13.0-17.0); Lymphocytes # (A) 0.95 10*3/uL (0.90-5.00); Lymphocytes % (A) 6.5 %; MCH 30.5 pg (27.0-32.0); MCHC 35.7 g/dL (32.0-37.0); MCV 85.4 fL (80.0-97.0); Mean Platelet Volume 9.6 fL (9.5-12.2); Monocytes % (A) 6.8 %; Neutrophils # (A) 12.37 10*3/uL (1.80-7.70); Neutrophils % (A) 84.5 %; Platelet Count 240 10*3/uL (140-440); RBC 3.77 10*6/uL (4.40-5.60); RDW 12.9 % (11.5-14.5); WBC 14.65 10*3/uL (4.50-10.00)
[2025-04-06 21:21] LABS: INR 0.9 (<1.2); Partial Thromboplastin Time 25.7 sec (22.0-30.0); Prothrombin Time 10.2 sec (10.0-12.5)
[2025-04-06 21:22] LABS: ALT 24 U/L (4-49); AST 26 U/L (17-59); African American GFR (CKD) >90 (>60 ml/min/1.73 sqM); Albumin 4.4 g/dL (3.5-5.0); Alkaline Phosphatase 119 U/L (38-126); Anion Gap 11 mmol/L; Blood Urea Nitrogen 22 mg/dL (9-20); Calcium 9.5 mg/dL (8.4-10.2); Carbon Dioxide 20 mmol/L (22-30); Chloride 98 mmol/L (98-107); Glucose 171 mg/dL (74-99); Magnesium 1.6 mg/dL (1.6-2.3); Non-African American GFR(CKD) 78 (>60 ml/min/1.73 sqM); Potassium 4.6 mmol/L (3.5-5.1); Sodium 129 mmol/L (137-145); Total Bilirubin 0.2 mg/dL (0.2-1.3); Total Protein 6.7 g/dL (6.3-8.2)
[2025-04-06] MEDS: IPRATROPIUM 0.5 MG/2.5 ML NEBU INHALATION STA (21:27)
[2025-04-06 21:31] LABS: NT-Pro-B-Type Natriuretic Pept 631 pg/mL
[2025-04-06 22:03] LABS: Influenza A Not Detected (Not Detectd); Influenza B Not Detected (Not Detectd); RSV Not Detected (Not Detectd)
[2025-04-06] MEDS: DEXAMETHASONE SOD PHOSPHATE 4 MG/ML 1 ML VIAL IVP STA (23:01)
[2025-04-06] MEDS: SODIUM CHLORIDE 0.9% 1,000 ML IV STA (23:01)
--- NOTE | 2025-04-06 23:03 | XR ---
EXAMINATION TYPE: XR chest 2V DATE OF EXAM: 04/06/2025 9:44 PM CLINICAL INDICATION:Male, 79 years old with history of difficulty breathing; [facility] COMPARISON: Chest radiographs from 06/29/2024 TECHNIQUE: XR chest 2V Frontal view of the chest. FINDINGS: There is similar right hemidiaphragm elevation. Left basilar atelectasis. There is hazy opacification s in the bilateral lower lung zones. No pneumothorax. The cardiac mediastinal silhouette is unremarka ble. No acute osseous abnormalities. IMPRESSION: Hazy airspace disease in the bilateral lower lower lung zones is concerning for acute infectious/infl ammatory process. [facility], , 04/06/2025 11:01 PM
[2025-04-06 23:43] VITALS: RESP 22
[2025-04-07] MEDS: AZITHROMYCIN 500 MG TAB PO STA (00:20)
[2025-04-07] MEDS: AMOXIC-POT CLAV 875-125MG 1 EACH TAB PO STA (00:20)
[2025-04-07 01:33] VITALS: BP 147/77; PULSE 92; TEMP 98.5
== END 2025-04-07 01:25 | disposition home or self-care (01) ==
LOC: EC 20:27
DX: J18.9 Pneumonia, unspecified organism (principal); J44.0 Chronic obstructive pulmonary disease with (acute) lower respiratory infection; E78.5 Hyperlipidemia, unspecified; E11.9 Type 2 diabetes mellitus without complications; Z79.84 Long term (current) use of oral hypoglycemic drugs; Z87.891 Personal history of nicotine dependence; Z11.52 Encounter for screening for COVID-19; Z88.2 Allergy status to sulfonamides; Z91.09 Other allergy status, other than to drugs and biological substances; Z88.8 Allergy status to other drugs, medicaments and biological substances
CPT/HCPCS: 36415; 94640; 93005; 83880; 80053; 83605; 83735; 84484; 85025; 85610; 85730; 87636; 71046; 99285; 96365; 96375; 96361; J1100

== ENCOUNTER → 2025-05-01 | Outpatient (CLI) | payer MEDICARE ==
--- NOTE | 2025-05-02 08:29 | XR ---
EXAMINATION TYPE: XR chest 2V DATE OF EXAM: 05/01/2025 12:18 PM COMPARISON: 04/05/2025 CLINICAL INDICATION: Male, 79 years old with history of R09.89 OTH SYMPTOMS AND SIGNS INVOLVING THE C [facility] A, TECHNIQUE: XR chest 2V view(s) obtained. FINDINGS: The heart size is normal. The pulmonary vasculature is normal. No suspicious focal infiltrates evident. Prior increased lung markings have improved. IMPRESSION: 1. No acute pulmonary process. [facility], Workstation: [facility] [place] [facility], 05/02/2025 8:26 AM
== END | disposition home or self-care (01) ==
LOC: RADXRMAIN 11:52
PROVIDERS: ATTEND Internal Medicine
DX: R09.89 Other specified symptoms and signs involving the circulatory and respiratory systems (principal)
CPT/HCPCS: 71046